=== PATIENT | male | born 1970 | race Two or more races ===

== ENCOUNTER 2018-06-25 18:27 | Emergency (ER) | payer SELFPAY ==
[~2018-06-25] VITALS: Ht 162.6 cm; Wt 80.3 kg
[~2018-06-25 18:27] MED LIST: LISI-338 PO; ONDA4TAB10 SL; OXYC-411 PO; PANT40TA5 PO
[2018-06-25 19:11] VITALS: BP 145/92
[2018-06-25] MEDS ORDERED: METH4TAB2 PO (19:38)
[2018-06-25] MEDS ORDERED: HYDR-2761 PO (19:38)
--- NOTE | 2018-06-25 19:38 | PHYS DOC ---
Past Medical History Past Medical History: High Cholesterol, Hypertension Additional Past Medical Histor: chronic back pain Past Surgical History: Other Additional Past Surgical Histo: "Sciatica surgery" Alcohol Use: Occasionally Drug Use: None Adult General Chief Complaint Chief Complaint: LOWER BACK PAIN OR INJURY HPI HPI Patient is a 48 year old male who presents with chronic right lower back pain with sciatica. Patient states that over the last week and started to become very painful with sharp shooting she with movement he rates his pain 9 out of 10. Patient states was just sitting it is 0 out of 10. Patient states that his right lower back with sharp shooting pain that goes to the back of his leg. Review of Systems Review of Systems Constitutional: Denies fever or chills [] Eyes: Denies change in visual acuity, redness, or eye pain [] HENT: Denies nasal congestion or sore throat [] Respiratory: Denies cough or shortness of breath [] Cardiovascular: No additional information not addressed in HPI [] GI: Denies abdominal pain, nausea, vomiting, bloody stools or diarrhea [] : Denies dysuria or hematuria [] Musculoskeletal: low back pain shooting down back of leg.or joint pain [] Integument: Denies rash or skin lesions [] Neurologic: Denies headache, focal weakness or sensory changes [] All other systems were reviewed and found to be within normal limits, except as documented in this note. Allergies Allergies Allergies Coded Allergies Type Severity Reaction Last Updated Verified baclofen Allergy Intermediate CHEST PRESSURE 04/03/16 Yes chlorzoxazone Allergy Intermediate CHEST PRESSURE 04/03/16 Yes codeine Allergy Intermediate rash 06/21/15 Yes cyclobenzaprine Allergy Intermediate Palpitations 10/09/13 Yes metaxalone Allergy Intermediate CHEST PRESSURE 04/03/16 Yes methocarbamol Allergy Intermediate CHEST PRESSURE 04/03/16 Yes orphenadrine Allergy Intermediate CHEST PRESSURE 04/03/16 Yes tizanidine Allergy Intermediate CHEST PRESSURE 04/03/16 Yes ibuprofen Adverse Reaction Intermediate gi pain 06/21/15 Yes lactose Adverse Reaction Unknown Nausea 04/03/16 Yes Physical Exam Physical Exam Constitutional: Well developed, well nourished, no acute distress, non-toxic appearance. [] HENT: Normocephalic, atraumatic, bilateral external ears normal, oropharynx moist, no oral exudates, nose normal. [] Eyes: PERRLA, EOMI, conjunctiva normal, no discharge. [] Neck: Normal range of motion, no tenderness, supple, no stridor. [] Cardiovascular:Heart rate regular rhythm, no murmur [] Lungs & Thorax: Bilateral breath sounds clear to auscultation [] Abdomen: Bowel sounds normal, soft, no tenderness, no masses, no pulsatile masses. [] Skin: Warm, dry, no erythema, no rash. [] Back: No tenderness, no CVA tenderness. [] Extremities: No tenderness, no cyanosis, no clubbing, ROM intact, no edema. [] Neurologic: Alert and oriented X 3, normal motor function, normal sensory function, no focal deficits noted. [] Psychologic: Affect normal, judgement normal, mood normal. Normal Physical Exam[] Current Patient Data Vital Signs Vital Signs Date Time Temp Pulse Resp B/P (MAP) Pulse Ox O2 Delivery O2 Flow Rate FiO2 06/25/18 19:11 98.0 87 16 145/92 (109) 97 Room Air 98.0 EKG EKG [] Radiology/Procedures Radiology/Procedures [] Course & Med Decision Making Course & Med Decision Making Patient is a 48 year old male who presents with chronic right lower back pain with sciatica. Patient states that over the last week and started to become very painful with sharp shooting she with movement he rates his pain 9 out of 10. Patient states was just sitting it is 0 out of 10. Patient states that his right lower back with sharp shooting pain that goes to the back of his leg. Alert and oriented. Walks with a steady gait. No tenderness to palpation of lower lumbar spine bilaterally back of the leg. There is no extremity swelling. Patient did drive himself here today. Pedal pulses present. Patient states he did go to 0 point this past they gave him hydrocodone muscle relaxer and he states he since out of this medication today did help some. Patient states he had surgery in 2005 for his sciatica. Patient states he is trying to get in with a clinic is waiting for his insurance to kick in. Patient states that most clinically they cannot get him in until July. Patient states he will make an appointment but he needs some medicine to help relieve this pain. I will give patient hydrocodone and a Medrol Dosepak. Patient is to follow-up with her primary care provider as soon as possible. Dragon Disclaimer Dragon Disclaimer This electronic medical record was generated, in whole or in part, using a voice recognition dictation system. Departure Departure Impression: Primary Impression: Sciatic pain Disposition: HOME, SELF-CARE Condition: STABLE Referrals: NO PCP (PCP) Patient Instructions: Sciatica Additional Instructions: Follow-up with her primary care provider as soon as possible. Take medication as prescribed. Also try using a heating pad. Scripts Hydrocodone Bit/Acetaminophen (HYDROCODONE-APAP 5-325 ) 1 Tab Tablet 1 TAB PO PRN Q6HRS PRN for PAIN, #10 TAB 0 Refills Prov: ANSHU MURRIETA APRN 06/25/18 Methylprednisolone (MEDROL) 4 Mg Tab.ds.pk 1 PKG PO UD, #1 PKG Prov: ANSHU MURRIETA APR06/25/18 Problem Qualifiers Primary Impression: Sciatic pain Laterality: right Qualified Codes: M54.31 - Sciatica, right side ANSHU MURRIETA APRN Jun 25, 2018 19:38
[2018-07-09] MEDS ORDERED: PRED-220 PO (18:23)
[2018-07-09] MEDS ORDERED: TRAM50TA PO (18:23)
== END 2018-06-25 19:44 | disposition home or self-care (01) ==
LOC: ER 18:27
DX: M54.41 Lumbago with sciatica, right side (principal); G89.29 Other chronic pain; E78.00 Pure hypercholesterolemia, unspecified; I10 Essential (primary) hypertension; Z88.8 Allergy status to other drugs, medicaments and biological substances; Z88.6 Allergy status to analgesic agent; Z88.5 Allergy status to narcotic agent; Z91.011 Allergy to milk products
CPT/HCPCS: 99283

== ENCOUNTER 2018-07-24 07:26 | Emergency (ER) | payer SELFPAY ==
[~2018-07-24] VITALS: Ht 162.6 cm; Wt 79.8 kg
[~2018-07-24 07:26] MED LIST changes: +HYDR-2761 PO; +METH4TAB2 PO; +PRED-220 PO; +TRAM50TA PO
[2018-07-24] MEDS ORDERED: KETOROLAC 60 MG/2 ML VIAL. IM ONE (07:45)
[2018-07-24] MEDS ORDERED: PRED50TA PO (07:59)
[2018-07-24] MEDS ORDERED: NAPR-683 PO (07:59)
[2018-07-24] MEDS ORDERED: HYDR-3164 PO (07:59)
--- NOTE | 2018-07-24 07:59 | PHYS DOC ---
Past Medical History Past Medical History: High Cholesterol, Hypertension Additional Past Medical Histor: chronic back pain Past Surgical History: Other Additional Past Surgical Histo: "Sciatica surgery" Alcohol Use: Occasionally Drug Use: None Adult General Chief Complaint Chief Complaint: BACK PAIN - NO INJURY HPI HPI Patient is a 48 year old male who presents with complaining of low back pain. Patient states he has had history of chronic back pain with history of back surgery and for the last 1 month of increasing right lower back pain with radiation to posterior high as a sharp pain that getting worse with standing up and getting better with bending his back. Patient rated his pain 8/10 and denies focal neuro deficit, fever and chills, urinary and bowel incontinence. Patient states he was seen in this emergency room 2 other location with the same pain with partial improvement of his pain. Patient states he had problem with his insurance and recently got insurance and has appointment with his doctor in 4 days. Review of Systems Review of Systems Constitutional: Denies fever or chills [] Eyes: Denies change in visual acuity, redness, or eye pain [] HENT: Denies nasal congestion or sore throat [] Respiratory: Denies cough or shortness of breath [] Cardiovascular: No additional information not addressed in HPI [] GI: Denies abdominal pain, nausea, vomiting, bloody stools or diarrhea [] : Denies dysuria or hematuria [] Musculoskeletal: Reports back pain Integument: Denies rash or skin lesions [] Neurologic: Denies headache, focal weakness or sensory changes [] Endocrine: Denies polyuria or polydipsia [] All other systems were reviewed and found to be within normal limits, except as documented in this note. Current Medications Current Medications Current Medications Medications (Trade) Dose Ordered Sig/Nathan Start Time Stop Time Status Last Admin Dose Admin Ketorolac Tromethamine (Toradol Im) 60 mg 1X ONCE 07/24/18 07:45 07/24/18 07:48 DC 07/24/18 07:53 60 MG Allergies Allergies Allergies Coded Allergies Type Severity Reaction Last Updated Verified baclofen Allergy Intermediate CHEST PRESSURE 04/03/16 Yes chlorzoxazone Allergy Intermediate CHEST PRESSURE 04/03/16 Yes cyclobenzaprine Allergy Intermediate Palpitations 10/09/13 Yes metaxalone Allergy Intermediate CHEST PRESSURE 04/03/16 Yes methocarbamol Allergy Intermediate CHEST PRESSURE 04/03/16 Yes orphenadrine Allergy Intermediate CHEST PRESSURE 04/03/16 Yes tizanidine Allergy Intermediate CHEST PRESSURE 04/03/16 Yes Physical Exam Physical Exam Constitutional: Well developed, well nourished, mild distress, non-toxic appearance. [] HENT: Normocephalic, atraumatic, bilateral external ears normal, oropharynx moist, no oral exudates, nose normal. [] Eyes: PERRLA, EOMI, conjunctiva normal, no discharge. [] Neck: Normal range of motion, no tenderness, supple, no stridor. [] Cardiovascular: Tachycardia, no murmur [] Lungs & Thorax: Bilateral breath sounds clear to auscultation [] Abdomen: Bowel sounds normal, soft, no tenderness, no masses, no pulsatile masses. [] Skin: Warm, dry, no erythema, no rash. [] Back: No midline tenderness, painful range of motion of lumbar spine, no CVA tenderness. [] Extremities: No tenderness, no cyanosis, no clubbing, ROM intact, no edema. [] Neurologic: Alert and oriented X 3, normal motor function, normal sensory function, no focal deficits noted. [] Psychologic: Affect anxious, judgement normal, mood normal. [] Current Patient Data Vital Signs Vital Signs Date Time Temp Pulse Resp B/P (MAP) Pulse Ox O2 Delivery O2 Flow Rate FiO2 07/24/18 08:30 90 18 149/78 (101) 99 Room Air 07/24/18 07:35 98.0 98.0 EKG EKG [] Radiology/Procedures Radiology/Procedures [] Course & Med Decision Making Course & Med Decision Making Evaluation of patient in ER showed 48-year-old male patient with history of chronic back pain exacerbation. Patient was anxious and had elevation of blood pressure with history of hypertension. Patient stated he took his blood pressure medication last night. Patient treated with Toradol in ER and felt better. Blood pressure improved. Patient was advised to take his blood pressure in the morning and follow with his primary care physician and his scheduled appointment with his back doctor in 4 days. Dragon Disclaimer Dragon Disclaimer This electronic medical record was generated, in whole or in part, using a voice recognition dictation system. Departure Departure Impression: Primary Impression: Sciatic pain Additional Impressions: Uncontrolled hypertension Tobacco abuse Tobacco abuse counseling Disposition: HOME, SELF-CARE (At 0800) Condition: STABLE Referrals: NO PCP (PCP) Patient Instructions: Sciatica, Smoking Cessation, Tips For Success Additional Instructions: Apply ice on the affected area Follow-up with your physician as scheduled in 4 days Return to ER if not getting better Scripts Hydrocodone/Apap 5-325 (NORCO 5-325 TABLET) 1 Each Tablet 1 TAB PO PRN Q6HRS PRN for PAIN, #14 TAB 0 Refills Prov: ASA BAILEY MD 07/24/18 Naproxen (NAPROSYN) 500 Mg Tablet 1 TAB PO BID for pain, #20 TAB Prov: ASA BAILEY MD 07/24/18 Prednisone (PREDNISONE) 50 Mg Tablet 1 TAB PO DAILY, #7 TAB Prov: ASA BAILEY MD 07/24/18 Problem Qualifiers ASA BAILEY MD Jul 24, 2018 07:59
[2018-07-24 08:30] VITALS: BP 149/78
== END 2018-07-24 08:50 | disposition home or self-care (01) ==
LOC: ER 07:26
DX: M54.41 Lumbago with sciatica, right side (principal); G89.29 Other chronic pain; R00.0 Tachycardia, unspecified; Z71.6 Tobacco abuse counseling; E78.00 Pure hypercholesterolemia, unspecified; I10 Essential (primary) hypertension; Z88.8 Allergy status to other drugs, medicaments and biological substances
CPT/HCPCS: 96372; 99283; J1885

== ENCOUNTER 2018-09-13 19:32 | Emergency (ER) | payer SELFPAY ==
[~2018-09-13] VITALS: Ht 162.6 cm; Wt 83.9 kg
[~2018-09-13 19:32] MED LIST changes: +HYDR-3164 PO; +NAPR-683 PO; +PRED50TA PO
[2018-09-13 19:48] VITALS: BP 149/88
--- NOTE | 2018-09-13 20:21 | PHYS DOC ---
Past Medical History Past Medical History: High Cholesterol, Hypertension, Other Additional Past Medical Histor: chronic back pain,SCIATICA Past Surgical History: Other Additional Past Surgical Histo: "Sciatica surgery" Additional Information: 3 TO 4 CIGARETTES A DAY Alcohol Use: Occasionally Drug Use: None Adult General Chief Complaint Chief Complaint: LOWER BACK PAIN OR INJURY HPI HPI Patient is a 48 year old male who presents to ER for Chronic back pain since 2005 that radiates down his R leg. The patient had surgery at that time with Dr. Fowler. The patient has stopped seeing his pain management doctor. States he has been given Woodward 2 months ago and Tramadol 2 months ago. The patient then later on in our conversation states that he was given Tramadol 5 days ago and has had to take 3 or 4 at a time. Patient also states that he has tried Icy Hot, and back exercise at home. Patient states pain is currently 8/10. Review of Systems Review of Systems Constitutional: Denies fever or chills [] Eyes: Denies change in visual acuity, redness, or eye pain [] HENT: Denies nasal congestion or sore throat [] Respiratory: Denies cough or shortness of breath [] Cardiovascular: No additional information not addressed in HPI [] GI: Denies abdominal pain, nausea, vomiting, bloody stools or diarrhea [] : Denies dysuria or hematuria [] Musculoskeletal: Reports back pain going down R leg or joint pain [] Integument: Denies rash or skin lesions [] Neurologic: Denies headache, focal weakness or sensory changes [] Endocrine: Denies polyuria or polydipsia [] Complete systems were reviewed and found to be within normal limits, except as documented in this note. Allergies Allergies Allergies Coded Allergies Type Severity Reaction Last Updated Verified baclofen Allergy Intermediate CHEST PRESSURE 04/03/16 Yes chlorzoxazone Allergy Intermediate CHEST PRESSURE 04/03/16 Yes cyclobenzaprine Allergy Intermediate Palpitations 10/09/13 Yes metaxalone Allergy Intermediate CHEST PRESSURE 04/03/16 Yes methocarbamol Allergy Intermediate CHEST PRESSURE 04/03/16 Yes orphenadrine Allergy Intermediate CHEST PRESSURE 04/03/16 Yes tizanidine Allergy Intermediate CHEST PRESSURE 04/03/16 Yes Physical Exam Physical Exam Constitutional: Well developed, well nourished, no acute distress, non-toxic appearance. [] HENT: Normocephalic, atraumatic, bilateral external ears normal, oropharynx moist, no oral exudates, nose normal. [] Eyes: PERRLA, EOMI, conjunctiva normal, no discharge. [] Neck: Normal range of motion, no tenderness, supple, no stridor. [] Cardiovascular:Heart rate regular rhythm, no murmur [] Lungs & Thorax: Bilateral breath sounds clear to auscultation [] Abdomen: Bowel sounds normal, soft, no tenderness, no masses, no pulsatile masses. [] Skin: Warm, dry, no erythema, no rash. [] Back: Tenderness on R lower back, no CVA tenderness. [] Extremities: No tenderness, no cyanosis, no clubbing, ROM intact, no edema. [] Neurologic: Alert and oriented X 3, normal motor function, normal sensory function, no focal deficits noted. [] Psychologic: Affect normal, judgement normal, mood normal. [] Current Patient Data Vital Signs Vital Signs Date Time Temp Pulse Resp B/P (MAP) Pulse Ox O2 Delivery O2 Flow Rate FiO2 09/13/18 19:48 98.0 98 14 149/88 (108) 96 Room Air 98.0 EKG EKG [] Radiology/Procedures Radiology/Procedures [] Course & Med Decision Making Course & Med Decision Making Pertinent Labs and Imaging studies reviewed. (See chart for details) Offered Flexeril and patient declined. Do not feel comfortable prescribing narcotics with the inconsistencies in patient story. Recommend to follow up with PCP and Pain Medicine doctor. Bijal Disclaimer Bijal Disclaimer This electronic medical record was generated, in whole or in part, using a voice recognition dictation system. Departure Departure Impression: Primary Impression: Sciatic pain Disposition: 01 HOME, SELF-CARE Condition: STABLE Referrals: NO PCP (PCP) Patient Instructions: Chronic Back Pain, Chronic Pain Management Additional Instructions: Please follow up with your pain medicine doctor and your primary care doctor. C ome back to ER if have new symptoms. Problem Qualifiers Primary Impression: Sciatic pain Laterality: right Qualified Codes: M54.31 - Sciatica, right side JOHNSONJEFF LOZANO CLARENCE Sep 13, 2018 20:21
== END 2018-09-13 20:23 | disposition home or self-care (01) ==
LOC: ER 19:32
DX: M54.41 Lumbago with sciatica, right side (principal); G89.29 Other chronic pain; E78.00 Pure hypercholesterolemia, unspecified; I10 Essential (primary) hypertension; F17.210 Nicotine dependence, cigarettes, uncomplicated; Z88.8 Allergy status to other drugs, medicaments and biological substances
CPT/HCPCS: 99281

== ENCOUNTER 2019-04-10 21:30 | Emergency (ER) | payer SELFPAY ==
[~2019-04-10] VITALS: Ht 162.6 cm; Wt 83.9 kg
[~2019-04-10 21:30] MED LIST changes: -PANT40TA5 PO; +PANT40TA77 PO
[2019-04-10 21:43] VITALS: BP 153/100
--- NOTE | 2019-04-10 22:51 | PHYS DOC ---
Past Medical History Past Medical History: High Cholesterol, Hypertension, Other Additional Past Medical Histor: chronic back pain,SCIATICA Past Surgical History: Other Additional Past Surgical Histo: "Sciatica surgery" Alcohol Use: Occasionally Drug Use: None Adult General Chief Complaint Chief Complaint: BACK PAIN - NO INJURY [facility] HPI Patient is a 48 year old male who presents to the emergency department with complaints of lateral left low back pain that radiates into his left leg for the last 3 days. Patient states he has a history of right-sided sciatica that he had surgery for several years ago. Patient states that his symptoms are similar to his sciatic nerve symptoms. He denies any recent injury, fall, or trauma. Patient denies any numbness, tingling, or weakness of his lower extremities. He denies any saddle anesthesia, or loss of bowel/bladder control. The patient currently rates his pain an 8 out of 10 on the pain scale he denies any alleviating factors, pain is worse with movement. He denies any fever, cough, shortness of breath, abdominal pain, dysuria, increased urinary frequency, or hematuria. All other ROS is neg unless otherwise noted in HPI. Review of Systems Review of Systems See Above Allergies Allergies Allergies Coded Allergies Type Severity Reaction Last Updated Verified baclofen Allergy Intermediate CHEST PRESSURE 04/03/16 Yes chlorzoxazone Allergy Intermediate CHEST PRESSURE 04/03/16 Yes cyclobenzaprine Allergy Intermediate Palpitations 10/09/13 Yes metaxalone Allergy Intermediate CHEST PRESSURE 04/03/16 Yes methocarbamol Allergy Intermediate CHEST PRESSURE 04/03/16 Yes orphenadrine Allergy Intermediate CHEST PRESSURE 04/03/16 Yes tizanidine Allergy Intermediate CHEST PRESSURE 04/03/16 Yes Physical Exam Physical Exam See Above Constitutional: Well developed, well nourished, no acute distress, non-toxic appearance. [] HENT: Normocephalic, atraumatic, bilateral external ears normal, nose normal. [] Eyes: PERRLA, EOMI, conjunctiva normal, no discharge. [] Neck: Normal range of motion, no stridor. [] Cardiovascular:Heart rate regular rhythm Lungs & Thorax: Respirations even and unlabored, no retractions, no respiratory distress Skin: Warm, dry, no erythema, no rash. [] Back: No bony tenderness, no CVA tenderness; left lumbar paraspinal tenderness to palpation, increased symptoms and pain with left straight leg lift concerning for sciatica. [] Extremities: No cyanosis, ROM intact, no edema. [] Neurologic: Alert and oriented X 3, no focal deficits noted. [] Psychologic: Affect normal, judgement normal, mood normal. [] Current Patient Data Vital Signs Vital Signs Date Time Temp Pulse Resp B/P (MAP) Pulse Ox O2 Delivery O2 Flow Rate FiO2 04/10/19 21:43 98.4 93 18 153/100 (117) 97 Room Air 98.4 EKG EKG [] Radiology/Procedures Radiology/Procedures [] Course & Med Decision Making Course & Med Decision Making Pertinent Labs and Imaging studies reviewed. (See chart for details) dx: medical screening exam A medical screening exam was performed, patient was found to have no emergent medical condition. The plan of care would've included a prescription for anti- inflammatories and education about sciatic area with stretching exercises . However, the patient eloped after talking with registration. [] [] Dragon Disclaimer Dragon Disclaimer This electronic medical record was generated, in whole or in part, using a voice recognition dictation system. Departure Departure Impression: Primary Impression: Encounter for medical screening examination Disposition: HOME, SELF-CARE Condition: STABLE Referrals: NO PCP (PCP) YSABEL PATE HEMATOLOGY SPECIALIST Apr 10, 2019 22:51
== END 2019-04-10 22:05 | disposition home or self-care (01) ==
LOC: ER 21:30
DX: G89.29 Other chronic pain (principal); M54.5 Low back pain; E78.00 Pure hypercholesterolemia, unspecified; I10 Essential (primary) hypertension; Z98.890 Other specified postprocedural states; Z88.6 Allergy status to analgesic agent; Z88.1 Allergy status to other antibiotic agents; Z88.2 Allergy status to sulfonamides; Z88.8 Allergy status to other drugs, medicaments and biological substances
CPT/HCPCS: 99281

== ENCOUNTER 2019-11-12 10:53 | Inpatient (IN) | payer SELFPAY ==
[~2019-11-12] VITALS: Ht 162.6 cm; Wt 84.8 kg
[~2019-11-12 10:53] MED LIST changes: -OXYC-411 PO; +OXYC1TAB20 PO
[2019-11-12] MEDS ORDERED: ASPIRIN CHEWABLE 81 MG TABLET. PO ONE (11:30)
--- NOTE | 2019-11-12 11:55 | RAD ---
AP portable chest 11/12/2019. Reason for exam: Chest pain. Comparison is made with an exam of 04/02/2016. Depth of inspiration is shallower. There is some focal opacity in the lower right lung suggesting atelectasis. There is no consolidation or pleural fluid. Heart size is normal. IMPRESSION: Shallow inspiration. Focal right lung atelectasis. Electronically signed by: Yaya Diehl Jr., MD (11/12/2019 11:52 AM) [facility]
[2019-11-12 11:57] LABS: BASO # 0.1 x10^3/uL (0.0-0.2); BASO % 0 % (0-3); EOS % 0 % (0-3); HEMATOCRIT 41.1 % (39.0-53.0); HEMOGLOBIN 14.2 g/dL (13.0-17.5); LYMPH # 0.8 x10^3/uL (1.0-4.8); LYMPH % 4 % (24-48); MEAN CORPUSCULAR HEMOGLOBIN 33 pg (25-35); MEAN CORPUSCULAR HGB CONC 35 g/dL (31-37); MEAN CORPUSCULAR VOLUME 94 fL (79-100); MONO # 1.1 x10^3/uL (0.0-1.1); MONO % 6 % (0-9); NEUT % 90 % (31-73); PLATELET COUNT 196 x10^3/uL (140-400); RED BLOOD COUNT 4.36 x10^6/uL (4.30-5.70); RED CELL DISTRIBUTION WIDTH 13.6 % (11.5-14.5); WHITE BLOOD COUNT 19.9 x10^3/uL (4.0-11.0)
[2019-11-12 12:03] LABS: PROTHROMBIN TIME PATIENT 12.6 SEC (11.7-14.0)
[2019-11-12 12:10] LABS: CALCIUM 8.9 mg/dL (8.5-10.1); CREATININE 0.9 mg/dL (0.7-1.3); GFR 89.7; POTASSIUM 3.5 mmol/L (3.5-5.1)
[2019-11-12 12:11] LABS: ALBUMIN 3.9 g/dL (3.4-5.0); ALBUMIN/GLOBULIN RATIO 0.9 (1.0-1.7); TOTAL BILIRUBIN 0.6 mg/dL (0.2-1.0); TOTAL PROTEIN 8.1 g/dL (6.4-8.2)
[2019-11-12] MEDS ORDERED: cefTRIAXone IV Push 1 GM VIAL. IVP ONE (12:30)
[2019-11-12] MEDS ORDERED: AZITHRMYCN 500MG IVPB FOR OMNI 250 ML IV ONE (13:00)
[2019-11-12] MEDS ORDERED: IV NORMAL SALINE 1000ML BAG 1,000 ML IV ONE (13:00)
[2019-11-12 13:19] LABS: % BANDS 9 % (0-9); % LYMPHS 6 % (24-48); % MONOS 6 % (0-10); % SEGS 79 % (35-66)
[2019-11-12 13:20] LABS: PLT ESTIMATE ADEQUATE (ADEQUATE)
--- NOTE | 2019-11-12 13:23 | PHYS DOC ---
Past Medical History Past Medical History: High Cholesterol, Hypertension, Other Additional Past Medical Histor: chronic back pain,SCIATICA Past Surgical History: Other Additional Past Surgical Histo: "Sciatica surgery" Smoking Status: Current Every Day Smoker Additional Information: 0.5 PPD Alcohol Use: Occasionally Additional Information: 1-2 BEERS/ DAY Drug Use: None General Adult EDM: Chief Complaint: CHEST PAIN HPI: HPI: Patient is a 49 year old male with history of hypertension, smoker, presented to ER today for evaluation of 10-day history of feeling sick with body ache, fever, chills, flulike symptoms. Patient said he also have productive cough with green sputum for 7 days. Patient complained of body ache, joint pain back pain. Patient said he went to an urgent care about 5 days ago for evaluation and had negative COVID19 test. Patient complained of sharp chest pain with cough or deep breathing, having trouble breathing, he feels like he is getting worse. Patient was evaluated by this physician who worn full PPE included N95 MASK, FACE SHIELD, GLOVE, GOWN. Review of Systems: Review of Systems: Constitutional: Positive for fever or chills. [] Eyes: Denies change in visual acuity. [] HENT: Positive for nasal congestion or sore throat. [] Respiratory: Positive for cough and shortness of breath. [] Cardiovascular: Positive for chest pain , no edema. [] GI: Denies abdominal pain, nausea, vomiting, bloody stools or diarrhea. [] : Denies dysuria. [] Musculoskeletal: Positive for back pain or joint pain. [] Integument: Denies rash. [] Neurologic: Denies headache, focal weakness or sensory changes. [] Endocrine: Denies polyuria or polydipsia. [] Lymphatic: Denies swollen glands. [] Psychiatric: Denies depression or anxiety. [] Heart Score: HEART Score for Chest Pain: HEART Score for Chest Pain Response (Comments) Value History Slighlty/Non-Suspicious 0 ECG Normal 0 Age >45 - < 65 1 Risk Factors 1 or 2 Risk Factors 1 Troponin < Normal Limit 0 Total 2 Risk Factors: Risk Factors: DM, Current or recent (<one month) smoker, HTN, HLP, family history of CAD, obesity. Risk Scores: Score 0 - 3: 2.5% MACE over next 6 weeks - Discharge Home Score 4 - 6: 20.3% MACE over next 6 weeks - Admit for Clinical Observation Score 7 - 10: 72.7% MACE over next 6 weeks - Early Invasive Strategies Current Medications: Current Medications Medications (Trade) Dose Ordered Sig/Nathan Start Time Stop Time Status Last Admin Dose Admin Aspirin (Aspirin Chewable) 324 mg 1X ONCE 11/12/19 11:30 11/12/19 11:31 DC 11/12/19 11:26 324 MG Azithromycin 250 ml @ 250 mls/hr 1X ONCE 11/12/19 13:00 11/12/19 13:59 11/12/19 13:14 250 MLS/HR Ceftriaxone Sodium (Rocephin) 1 gm 1X ONCE 11/12/19 12:30 11/12/19 12:31 DC 11/12/19 13:10 1 GM Sodium Chloride 1,000 ml @ 1,000 mls/hr 1X ONCE 11/12/19 13:00 11/12/19 13:59 11/12/19 13:13 1,000 MLS/HR Allergies: Allergies: Allergies Coded Allergies Type Severity Reaction Last Updated Verified baclofen Allergy Intermediate CHEST PRESSURE 04/03/16 Yes chlorzoxazone Allergy Intermediate CHEST PRESSURE 04/03/16 Yes cyclobenzaprine Allergy Intermediate Palpitations 10/09/13 Yes metaxalone Allergy Intermediate CHEST PRESSURE 04/03/16 Yes methocarbamol Allergy Intermediate CHEST PRESSURE 04/03/16 Yes orphenadrine Allergy Intermediate CHEST PRESSURE 04/03/16 Yes tizanidine Allergy Intermediate CHEST PRESSURE 04/03/16 Yes Physical Exam: PE: Constitutional: Well developed, well nourished, MILD acute distress, non-toxic appearance. [] HENT: Normocephalic, atraumatic, bilateral external ears normal, oropharynx moist WITH ERYTHEMA, no oral exudates, nose normal. [] Eyes: PERRLA, EOMI, conjunctiva normal, no discharge. [] Neck: Normal range of motion, no tenderness, supple, no stridor. [] Cardiovascular:Heart rate regular rhythm, no murmur [] Lungs & Thorax: Bilateral breath sounds WITH CRACKLES AT LUNG BASES to auscultation [] Abdomen: Bowel sounds normal, soft, no tenderness, no masses, no pulsatile masses. [] Skin: Warm, dry, no erythema, no rash. [] Back: No tenderness, no CVA tenderness. [] Extremities: No tenderness, no cyanosis, no clubbing, ROM intact, no edema. [] Neurologic: Alert and oriented X 3, normal motor function, normal sensory fun ction, no focal deficits noted. [] Psychologic: Affect normal, judgement normal, mood normal. [] Current Patient Data: Labs: Laboratory Tests Test 11/12/19 11:26 11/12/19 11:36 Lactic Acid Level 3.7 mmol/L (0.4-2.0) H White Blood Count 19.9 x10^3/uL (4.0-11.0) H Red Blood Count 4.36 x10^6/uL (4.30-5.70) Hemoglobin 14.2 g/dL (13.0-17.5) Hematocrit 41.1 % (39.0-53.0) Mean Corpuscular Volume 94 fL (79-100) Mean Corpuscular Hemoglobin 33 pg (25-35) Mean Corpuscular Hemoglobin Concent 35 g/dL (31-37) Red Cell Distribution Width 13.6 % (11.5-14.5) Platelet Count 196 x10^3/uL (140-400) Neutrophils (%) (Auto) 90 % (31-73) H Lymphocytes (%) (Auto) 4 % (24-48) L Monocytes (%) (Auto) 6 % (0-9) Eosinophils (%) (Auto) 0 % (0-3) Basophils (%) (Auto) 0 % (0-3) Neutrophils # (Auto) 18.0 x10^3/uL (1.8-7.7) H Lymphocytes # (Auto) 0.8 x10^3/uL (1.0-4.8) L Monocytes # (Auto) 1.1 x10^3/uL (0.0-1.1) Eosinophils # (Auto) 0.0 x10^3/uL (0.0-0.7) Basophils # (Auto) 0.1 x10^3/uL (0.0-0.2) Platelet Estimate Pending Prothrombin Time 12.6 SEC (11.7-14.0) Prothrombin Time INR 1.0 (0.8-1.1) Activated Partial Thromboplast Time 31 SEC (24-38) Sodium Level 130 mmol/L (136-145) L Potassium Level 3.5 mmol/L (3.5-5.1) Chloride Level 90 mmol/L (98-107) L Carbon Dioxide Level 24 mmol/L (21-32) Anion Gap 16 (6-14) H Blood Urea Nitrogen 4 mg/dL (8-26) L Creatinine 0.9 mg/dL (0.7-1.3) Estimated GFR (Cockcroft-Gault) 89.7 BUN/Creatinine Ratio 4 (6-20) L Glucose Level 128 mg/dL (70-99) H Calcium Level 8.9 mg/dL (8.5-10.1) Total Bilirubin 0.6 mg/dL (0.2-1.0) Aspartate Amino Transferase (AST) 37 U/L (15-37) Alanine Aminotransferase (ALT) 58 U/L (16-63) Alkaline Phosphatase 112 U/L (46-116) Troponin I Quantitative < 0.017 ng/mL (0.000-0.055) MN-[id number]-G-Type Natriuretic Peptide 18 pg/mL (0-124) Total Protein 8.1 g/dL (6.4-8.2) Albumin 3.9 g/dL (3.4-5.0) Albumin/Globulin Ratio 0.9 (1.0-1.7) L Lipase 244 U/L (73-393) Laboratory Tests 11/12/19 11:36 Laboratory Tests 11/12/19 11:36 Vital Signs: Vital Signs Date Time Temp Pulse Resp B/P (MAP) Pulse Ox O2 Delivery O2 Flow Rate FiO2 11/12/19 10:55 99.0 105 22 179/106 (130) 94 Room Air 99.0 EKG: EKG: EKG was done at 1105, heart rate 103 bpm, sinus tachycardia, no ST segment elevation [] Radiology/Procedures: Radiology/Procedures: [][facility] [address] [place] [address] IMAGING REPORT Signed PATIENT: KASH LOZADA ACCOUNT: [id number] : 1970 LOCATION: ER AGE: 49 SEX: M EXAM STATUS: REG ER ORD. PHYSICIAN: JESUS MANUEL DAIGLE DO REASON: chest pain, soa, cough, fever PROCEDURE: CT CHEST W/CONTRAST CT CHEST W/CONTRAST INDICATION: chest pain, soa, cough, fever Comparison: Radiograph 11/12/2019. TECHNIQUE: Following the uneventful administration of intravenous contrast, 75 cc Omnipaque 300, axial CT sections were obtained through the lungs and upper abdomen. Multiplanar reconstructions and MIP images were obtained. PQRS compliance statement: One or more of the following individualized dose reduction techniques were utilized for this examination: 1. Automated exposure control 2. Adjustment of the mA and/or kV according to patient size 3. Use of iterative reconstruction technique FINDINGS: Lungs and Airways: Scattered right upper lobe groundglass opacities. Bibasilar opacities. Bronchial wall thickening. Pleura: The pleural spaces are normal. Heart and Mediastinum: The visualized thyroid is normal in size and attenuation. No axillary or supraclavicular lymphadenopathy. No mediastinal, hilar or retrocrural lymphadenopathy. The heart and pericardium are within normal limits. The great vessels of the thorax are normal. Abdomen: Hepatic steatosis. Bones and Soft Tissues: The visualized bones and chest wall soft tissues are within normal limits. IMPRESSION: Scattered right upper lobe ground glass opacities, likely an infectious/inflammatory process. Additional bibasilar dependent opacities could represent subsegmental atelectasis and/or additional infection. Electronically signed by: Gamal Wesley MD (11/12/2019 1:58 PM) [id number] DICTATED and SIGNED BY: GAMAL WESLEY MD DATE: 11/12/19 1358 Course & Med Decision Making: Course & Med Decision Making Pertinent Labs and Imaging studies reviewed. (See chart for details) Patient is a 49-year-old male smoker, history of hypertension, presented to ER for evaluation of 10-day history of cough fever chills body ache flulike symptom. Patient indicated that he had a negative Novel coronavirus test 5 days ago. Patient continue being sick, having chest pain cough fever and chill productive cough with sputum. Patient presented here with oxygen saturation 90 to 92% on room air, tachypneic, tachycardic, lactic acid elevated to 3.7. With white blood cell count in the 19,000, patient meets criteria for severe sepsis CT scan of the chest show a few groundglass infiltration. Patient was given 2 L normal saline IV bolus in ER, Rocephin and Zithromax was started. Patient will be admitted to hospital service, discussed with Dr. Murdock who agreed to admit the patient. Patient is suspected to have COVID19. COVID-19 CRITERIA: The patient was evaluated during the global COVID-19 pandemic, and that diagnosis was suspected/considered upon their initial presentation. Their evaluation, treatment and testing was consistent with curr ent guidelines for patients who present with complaints or symptoms that may be related to COVID-19. Dragon Disclaimer: Dragon Disclaimer: This electronic medical record was generated, in whole or in part, using a voice recognition dictation system. Departure Departure Impression: Primary Impression: Severe sepsis Additional Impressions: Pneumonia Suspected COVID-19 virus infection Disposition: ADMITTED INPATIENT Admitting Physician: MADIES (Dr. Bourne) Condition: IMPROVED Referrals: NO PCP (PCP) Justicifation of Admission Dx: Justifications for Admission: Justification of Admission Dx: Yes Sepsis: End-Organ Dysfunction JESUS MANUEL DAIGLE DO Nov 12, 2019 13:23
[2019-11-12] MEDS ORDERED: CONTRAST GIVEN. MC PRN (13:45)
[2019-11-12] MEDS ORDERED: IV NORMAL SALINE 1000ML BAG 1,000 ML IV SCH (13:48)
[2019-11-12] MEDS ORDERED: ONDANSETRON PF 4 MG/2 ML VIAL. IV PRN (14:00)
[2019-11-12] MEDS ORDERED: IOHEXOL 300 MG/ML 100ML VIAL. IV ONE (14:00)
--- NOTE | 2019-11-12 14:02 | RAD ---
CT CHEST W/CONTRAST INDICATION: chest pain, soa, cough, fever Comparison: Radiograph 11/12/2019. TECHNIQUE: Following the uneventful administration of intravenous contrast, 75 cc Omnipaque 300, axial CT sections were obtained through the lungs and upper abdomen. Multiplanar reconstructions and MIP images were obtained. RS compliance statement: One or more of the following individualized dose reduction techniques were utilized for this examination: 1. Automated exposure control 2. Adjustment of the mA and/or kV according to patient size 3. Use of iterative reconstruction technique FINDINGS: Lungs and Airways: Scattered right upper lobe groundglass opacities. Bibasilar opacities. Bronchial wall thickening. Pleura: The pleural spaces are normal. Heart and Mediastinum: The visualized thyroid is normal in size and attenuation. No axillary or supraclavicular lymphadenopathy. No mediastinal, hilar or retrocrural lymphadenopathy. The heart and pericardium are within normal limits. The great vessels of the thorax are normal. Abdomen: Hepatic steatosis. Bones and Soft Tissues: The visualized bones and chest wall soft tissues are within normal limits. IMPRESSION: Scattered right upper lobe ground glass opacities, likely an infectious/inflammatory process. Additional bibasilar dependent opacities could represent subsegmental atelectasis and/or additional infection. Electronically signed by: Roland Wesley MD (11/12/2019 1:58 PM) [id number]
--- NOTE | 2019-11-12 14:35 | PDOC1 ---
History and Physical Date of Admission: Date of Admission DATE: 11/12/19 TIME: 14:32 Chief Complaint: Problems: (1) Sciatic pain (2) Chronic low back pain (3) Abdominal pain (4) URI (upper respiratory infection) (5) Nausea & vomiting (6) Chest pain (7) Encounter for medical screening examination (8) Sciatic pain (9) Pneumonia (10) Severe sepsis (11) Suspected COVID-19 virus infection Chief Complain: Shortness of breath productive cough fevers History of Present Illness: HPI: This is a middle-aged male who apparently was tested for COVID 5 days ago and it was negative Now he is developed shortness of breath cough productive green He also has associated weakness and chills He also has chest pain for the past 10 days Our initial chest x-ray in the ER was read as negative however his O2 sat is 90% were concerned he could have COVID-19 Should be noted that he has a white count of 19,000 and a lactic acid of 3.7 I discussed the case with the ER physician were going to meet the patient and consult pulmonary medicine and infectious disease Patient is also going for a CAT scan of the chest to help clarify the cause of his symptoms Past Medical/Surgical History: PMH/PSH: Past Medical History: High Cholesterol, Hypertension, Other Additional Past Medical Histor: chronic back pain,SCIATICA Past Surgical History: Other Additional Past Surgical Histo: "Sciatica surgery" Smoking Status: Current Every Day Smoker Allergies: Allergies: Coded Allergies: baclofen (Verified Allergy, Intermediate, CHEST PRESSURE, 04/03/16) chlorzoxazone (Verified Allergy, Intermediate, CHEST PRESSURE, 04/03/16) cyclobenzaprine (Verified Allergy, Intermediate, Palpitations, 10/09/13) metaxalone (Verified Allergy, Intermediate, CHEST PRESSURE, 04/03/16) methocarbamol (Verified Allergy, Intermediate, CHEST PRESSURE, 04/03/16) orphenadrine (Verified Allergy, Intermediate, CHEST PRESSURE, 04/03/16) tizanidine (Verified Allergy, Intermediate, CHEST PRESSURE, 04/03/16) Family History: Family History: Hypertension Social History: Social History: He smokes no drink or drugs Current Medications: Current Medications Current Medications Aspirin (Aspirin Chewable) 324 mg 1X ONCE PO Last administered on 11/12/19at 11:26; Start 11/12/19 at 11:30; Stop 11/12/19 at 11:31; Status DC Ceftriaxone Sodium (Rocephin) 1 gm 1X ONCE IVP Last administered on 11/12/19at 13:10; Start 11/12/19 at 12:30; Stop 11/12/19 at 12:31; Status DC Azithromycin 250 ml @ 250 mls/hr 1X ONCE IV Last administered on 11/12/19at 13:14; Start 11/12/19 at 13:00; Stop 11/12/19 at 13:59; Status DC Sodium Chloride 1,000 ml @ 1,000 mls/hr 1X ONCE IV Last administered on 11/12/19at 13:13; Start 11/12/19 at 13:00; Stop 11/12/19 at 13:59; Status DC Iohexol (Omnipaque 300 Mg/ml) 75 ml 1X ONCE IV Last administered on 11/12/19at 13:50; Start 11/12/19 at 14:00; Stop 11/12/19 at 14:01; Status DC Info (CONTRAST GIVEN -- Rx MONITORING) 1 each PRN DAILY PRN MC SEE COMMENTS; Start 11/12/19 at 13:45; Stop 11/14/19 at 13:44 Ondansetron HCl (Zofran) 4 mg PRN Q8HRS PRN IV NAUSEA/VOMITING; Start 11/12/19 at 14:00; Stop 11/13/19 at 13:59 Sodium Chloride 1,000 ml @ 125 mls/hr Q8H IV ; Start 11/12/19 at 13:48; Stop 11/13/19 at 13:47 Active Scripts Active [place] 5-325 Tablet (Acetaminophen/Hydrocodone Bitart) 1 Each Tablet 1 Tab PO PRN Q6HRS PRN Naprosyn (Naproxen) 500 Mg Tablet 1 Tab PO BID Prednisone 50 Mg Tablet 1 Tab PO DAILY Tramadol Hcl 50 Mg Tablet 50 Mg PO Q6HRS PRN Prednisone (Prednisone) 10 Mg Tablet 40 Mg PO DAILY 7 Days Hydrocodone-Apap 5-325 (Hydrocodone Bit/Acetaminophen) 1 Tab Tablet 1 Tab PO PRN Q6HRS PRN Medrol (Methylprednisolone) 4 Mg Tab.ds.pk 1 Pkg PO UD Lisinopril 5 Mg Tablet 5 Mg PO DAILY Zofran Odt (Ondansetron) 4 Mg Tab.rapdis 1 Tab SL Q8HRS Reported Oxycodone-Acetaminophen 10-325 (Oxycodone Hcl/Acetaminophen) 1 Each Tablet 1 Each PO PRN ROS: Review of Systems Review of System REVIEW OF SYSTEMS: GENERAL: Denies weakness SKIN: No bruising, hair changes or rashes. EYES: No blurred, double or loss of vision. NOSE AND THROAT: No history of nosebleeds, hoarseness or sore throat. HEART: Complains of chest discomfort LUNGS: Complains of shortness of breath cough and productive sputum GASTROINTESTINAL: Denies changes in appetite, nausea, vomiting, diarrhea or constipation. GENITOURINARY: No history of frequency, urgency, hesitancy or nocturia. NEUROLOGIC: Denies history of numbness, tingling, or tremor. PSYCHIATRIC: No history of panic, anxiety or depression. ENDOCRINE: No history of heat or cold intolerance, polyuria or polydipsia. EXTREMITIES: Denies joint pain, pain on walking or stiffness. Physical Exam: Vital Signs: Vital Signs Date Time Temp Pulse Resp B/P (MAP) Pulse Ox O2 Delivery O2 Flow Rate FiO2 11/12/19 13:59 101 18 151/89 (109) 94 Room Air 11/12/19 10:55 99.0 99.0 Physcial Exam: GEN: No apparent distress. Alert and oriented HEENT: Normal cephalic, atraumatic, external auditory canals are patent EYES: Extraocular muscles are intact, pupil are equally round and reactive to light and accommodation MUSCULOSKELETAL: Well developed , well nourished, good range of motion ENDOCRINE: No thyromegaly was palpated LYMPHATICS: No cervical chain or axillary nodes were noted HEMATOPOIETIC: No bruising NECK: Supple, no JVD, no thyromegaly was noted LUNGS: Slight wheezing he has a productive cough as well HEART: RRR, S!, S2 present. Peripheral pulses intact, no obvious murmurs noted ABDOMEN: Soft, nontender. Positive bowel sounds, no organomegaly, normal bowel sounds EXTREMITIES: Without clubbing, cyanosis, or edema. Pedal pulses intact. Negative Homans sign NEUROLOGIC: Normal speech and tone. A&O x 3, moves all extremities, no obvious focal deficits PSYCHIATRIC: Normal affect, normal mood. Stable SKIN: No ulcerations or rashes, good skin turgor, no jaundice VASCULAR: Good capillary refill, neurovascular bundle appears to be intact Labs: Labs: Laboratory Tests Test 11/12/19 11:26 11/12/19 11:36 Lactic Acid Level 3.7 mmol/L (0.4-2.0) White Blood Count 19.9 x10^3/uL (4.0-11.0) Red Blood Count 4.36 x10^6/uL (4.30-5.70) Hemoglobin 14.2 g/dL (13.0-17.5) Hematocrit 41.1 % (39.0-53.0) Mean Corpuscular Volume 94 fL (79-100) Mean Corpuscular Hemoglobin 33 pg (25-35) Mean Corpuscular Hemoglobin Concent 35 g/dL (31-37) Red Cell Distribution Width 13.6 % (11.5-14.5) Platelet Count 196 x10^3/uL (140-400) Neutrophils (%) (Auto) 90 % (31-73) Lymphocytes (%) (Auto) 4 % (24-48) Monocytes (%) (Auto) 6 % (0-9) Eosinophils (%) (Auto) 0 % (0-3) Basophils (%) (Auto) 0 % (0-3) Neutrophils # (Auto) 18.0 x10^3/uL (1.8-7.7) Lymphocytes # (Auto) 0.8 x10^3/uL (1.0-4.8) Monocytes # (Auto) 1.1 x10^3/uL (0.0-1.1) Eosinophils # (Auto) 0.0 x10^3/uL (0.0-0.7) Basophils # (Auto) 0.1 x10^3/uL (0.0-0.2) Segmented Neutrophils % 79 % (35-66) Band Neutrophils % 9 % (0-9) Lymphocytes % 6 % (24-48) Monocytes % 6 % (0-10) Platelet Estimate Adequate (ADEQUATE) Prothrombin Time 12.6 SEC (11.7-14.0) Prothromb Time International Ratio 1.0 (0.8-1.1) Activated Partial Thromboplast Time 31 SEC (24-38) Sodium Level 130 mmol/L (136-145) Potassium Level 3.5 mmol/L (3.5-5.1) Chloride Level 90 mmol/L (98-107) Carbon Dioxide Level 24 mmol/L (21-32) Anion Gap 16 (6-14) Blood Urea Nitrogen 4 mg/dL (8-26) Creatinine 0.9 mg/dL (0.7-1.3) Estimated GFR (Cockcroft-Gault) 89.7 BUN/Creatinine Ratio 4 (6-20) Glucose Level 128 mg/dL (70-99) Calcium Level 8.9 mg/dL (8.5-10.1) Total Bilirubin 0.6 mg/dL (0.2-1.0) Aspartate Amino Transf (AST/SGOT) 37 U/L (15-37) Alanine Aminotransferase (ALT/SGPT) 58 U/L (16-63) Alkaline Phosphatase 112 U/L (46-116) Troponin I Quantitative < 0.017 ng/mL (0.000-0.055) IZ-Tni-P-Type Natriuretic Peptide 18 pg/mL (0-124) Total Protein 8.1 g/dL (6.4-8.2) Albumin 3.9 g/dL (3.4-5.0) Albumin/Globulin Ratio 0.9 (1.0-1.7) Lipase 244 U/L (73-393) Laboratory Tests Test 11/12/19 11:26 11/12/19 11:36 Lactic Acid Level 3.7 mmol/L (0.4-2.0) White Blood Count 19.9 x10^3/uL (4.0-11.0) Red Blood Count 4.36 x10^6/uL (4.30-5.70) Hemoglobin 14.2 g/dL (13.0-17.5) Hematocrit 41.1 % (39.0-53.0) Mean Corpuscular Volume 94 fL (79-100) Mean Corpuscular Hemoglobin 33 pg (25-35) Mean Corpuscular Hemoglobin Concent 35 g/dL (31-37) Red Cell Distribution Width 13.6 % (11.5-14.5) Platelet Count 196 x10^3/uL (140-400) Neutrophils (%) (Auto) 90 % (31-73) Lymphocytes (%) (Auto) 4 % (24-48) Monocytes (%) (Auto) 6 % (0-9) Eosinophils (%) (Auto) 0 % (0-3) Basophils (%) (Auto) 0 % (0-3) Neutrophils # (Auto) 18.0 x10^3/uL (1.8-7.7) Lymphocytes # (Auto) 0.8 x10^3/uL (1.0-4.8) Monocytes # (Auto) 1.1 x10^3/uL (0.0-1.1) Eosinophils # (Auto) 0.0 x10^3/uL (0.0-0.7) Basophils # (Auto) 0.1 x10^3/uL (0.0-0.2) Segmented Neutrophils % 79 % (35-66) Band Neutrophils % 9 % (0-9) Lymphocytes % 6 % (24-48) Monocytes % 6 % (0-10) Platelet Estimate Adequate (ADEQUATE) Prothrombin Time 12.6 SEC (11.7-14.0) Prothromb Time International Ratio 1.0 (0.8-1.1) Activated Partial Thromboplast Time 31 SEC (24-38) Sodium Level 130 mmol/L (136-145) Potassium Level 3.5 mmol/L (3.5-5.1) Chloride Level 90 mmol/L (98-107) Carbon Dioxide Level 24 mmol/L (21-32) Anion Gap 16 (6-14) Blood Urea Nitrogen 4 mg/dL (8-26) Creatinine 0.9 mg/dL (0.7-1.3) Estimated GFR (Cockcroft-Gault) 89.7 BUN/Creatinine Ratio 4 (6-20) Glucose Level 128 mg/dL (70-99) Calcium Level 8.9 mg/dL (8.5-10.1) Total Bilirubin 0.6 mg/dL (0.2-1.0) Aspartate Amino Transf (AST/SGOT) 37 U/L (15-37) Alanine Aminotransferase (ALT/SGPT) 58 U/L (16-63) Alkaline Phosphatase 112 U/L (46-116) Troponin I Quantitative < 0.017 ng/mL (0.000-0.055) MZ-[id number]-R-Type Natriuretic Peptide 18 pg/mL (0-124) Total Protein 8.1 g/dL (6.4-8.2) Albumin 3.9 g/dL (3.4-5.0) Albumin/Globulin Ratio 0.9 (1.0-1.7) Lipase 244 U/L (73-393) Assessment/Plan Assessment/Plan Cough productive sputum leukocytosis lactic acidosis hypoxia chills fever abnormal chest x-ray chest discomfort Plan Admit to the COVID floor and rule out COVID-19 CT of the chest to help clarify the cause of his symptoms Consult pulmonary Consult ID IV antibiotics Albuterol Home meds DVT prophylaxis O2 per nasal cannula Trend labs PRN Tylenol Prognosis guarded Justicifation of Admission Dx: Justifications for Admission: Justification of Admission Dx: Yes Respiratory Failure: Severe Resp Distress Sepsis: End-Organ Dysfunction TEREZA CHAVARRIA III DO Nov 12, 2019 14:35
[2019-11-12] MEDS: methylPREDNISolone SOD SUCC PF 40 MG/ML VIAL. IV SCH ×2 (14:45→19:58)
[2019-11-12 16:05] VITALS: BP 161/80
--- NOTE | 2019-11-12 19:10 | NUR ---
spoke to Dr Bourne regarding orders for the pt. Dr Bourne notified that i had Addendum: 11/12/19 at 1940 by GRIFFIN TARIQ RN Dr Bourne notified that I had not given any medications or started fluids yet. Orders given.
--- NOTE | 2019-11-12 19:41 | NUR ---
Called service for cough medicine for the pt.
[2019-11-12] MEDS: IV NORMAL SALINE 1000ML BAG 1,000 ML IV SCH (19:42)
[2019-11-12] MEDS: PIPERACILLIN/TAZOBACTAM 3.375 GM in IV NORMAL SALINE 50ML 50 ML IV SCH ×2 (19:43→23:39)
[2019-11-12 19:55] VITALS: BP 190/98
[2019-11-12] MEDS: HYDROcodone/APAP 5/325MG 1 TAB TABLET PO PRN (19:58)
[2019-11-12] MEDS: guaiFENesin/CODEINE 100mg/10mg 5 ML LIQUID PO PRN (19:58)
[2019-11-12] MEDS: ACETAMINOPHEN 325 MG TABLET. PO PRN (20:00)
[2019-11-12 20:09] LABS: FIO2 ABG 28; HCO3 ABG 23 mmol/L (21-28); PCO2 ABG 34 mmHg (35-46); PO2 ABG 62 mmHg (75-108); SAT O2 ABG 92 % (92-99)
[2019-11-12 20:10] LABS: CORRECTED PCO2 ABG 38 mmHg; CORRECTED PH ABG 7.42; CORRECTED PO2 ABG 72 mmHg
[2019-11-12 23:52] VITALS: BP 158/93
[2019-11-13] MEDS: guaiFENesin/CODEINE 100mg/10mg 5 ML LIQUID PO PRN ×4 (03:36→23:45)
[2019-11-13] MEDS: ACETAMINOPHEN 325 MG TABLET. PO PRN (03:36)
[2019-11-13 03:44] VITALS: BP 149/85
[2019-11-13] MEDS: PIPERACILLIN/TAZOBACTAM 3.375 GM in IV NORMAL SALINE 50ML 50 ML IV SCH ×4 (05:43→23:26)
[2019-11-13] MEDS: IV NORMAL SALINE 1000ML BAG 1,000 ML IV SCH (06:20)
[2019-11-13 07:00] VITALS: BP 178/99
[2019-11-13] MEDS: MULTIVITAMIN with MINERAL TABLET. PO SCH (09:56)
[2019-11-13] MEDS: methylPREDNISolone SOD SUCC PF 40 MG/ML VIAL. IV SCH ×2 (09:56→20:53)
--- NOTE | 2019-11-13 09:56 | PDOC ---
[facility] [facility] PROGRESS NOTE Chief Complaint Chief Complaint (1) Sciatic pain (2) Chronic low back pain (3) Abdominal pain (4) URI (upper respiratory infection) (5) Nausea & vomiting (6) Chest pain (7) Encounter for medical screening examination (8) Sciatic pain (9) Pneumonia (10) Severe sepsis (11) Suspected COVID-19 virus infection History of Present Illness History of Present Illness 11/13/2019 Patient is seen and examined He is feeling much better and resting comfortably Discussed with RN Charts reviewed This is a middle-aged male who apparently was tested for COVID 5 days ago and it was negative Now he is developed shortness of breath cough productive green He also has associated weakness and chills He also has chest pain for the past 10 days Our initial chest x-ray in the ER was read as negative however his O2 sat is 90% were concerned he could have COVID-19 Should be noted that he has a white count of 19,000 and a lactic acid of 3.7 I discussed the case with the ER physician were going to meet the patient and consult pulmonary medicine and infectious disease Patient is also going for a CAT scan of the chest to help clarify the cause of his symptoms Vitals/I&O Vitals/I&O: Vital Signs Date Time Temp Pulse Resp B/P (MAP) Pulse Ox O2 Delivery O2 Flow Rate FiO2 11/13/19 07:00 98.1 90 18 178/99 (125) 100 Nasal Cannula 2.0 98.1 I & O 11/12/19 11/12/19 11/13/19 15:00 23:00 07:00 Intake Total 1000 ml 800 ml Output Total 300 ml 700 ml Balance 1000 ml 500 ml -700 ml Physical Exam General: Alert, Oriented X3, Cooperative, No acute distress Heart: Regular rate, No murmurs Lungs: Clear Abdomen: Normal bowel sounds, No tenderness Extremities: No clubbing, No cyanosis, Normal pulses Skin: No rashes, No significant lesion Labs Labs: Laboratory Tests Test 11/12/19 11:26 11/12/19 11:36 11/12/19 18:00 11/12/19 20:01 Lactic Acid Level 3.7 mmol/L (0.4-2.0) 2.0 mmol/L (0.4-2.0) White Blood Count 19.9 x10^3/uL (4.0-11.0) Red Blood Count 4.36 x10^6/uL (4.30-5.70) Hemoglobin 14.2 g/dL (13.0-17.5) Hematocrit 41.1 % (39.0-53.0) Mean Corpuscular Volume 94 fL (79-100) Mean Corpuscular Hemoglobin 33 pg (25-35) Mean Corpuscular Hemoglobin Concent 35 g/dL (31-37) Red Cell Distribution Width 13.6 % (11.5-14.5) Platelet Count 196 x10^3/uL (140-400) Neutrophils (%) (Auto) 90 % (31-73) Lymphocytes (%) (Auto) 4 % (24-48) Monocytes (%) (Auto) 6 % (0-9) Eosinophils (%) (Auto) 0 % (0-3) Basophils (%) (Auto) 0 % (0-3) Neutrophils # (Auto) 18.0 x10^3/uL (1.8-7.7) Lymphocytes # (Auto) 0.8 x10^3/uL (1.0-4.8) Monocytes # (Auto) 1.1 x10^3/uL (0.0-1.1) Eosinophils # (Auto) 0.0 x10^3/uL (0.0-0.7) Basophils # (Auto) 0.1 x10^3/uL (0.0-0.2) Segmented Neutrophils % 79 % (35-66) Band Neutrophils % 9 % (0-9) Lymphocytes % 6 % (24-48) Monocytes % 6 % (0-10) Platelet Estimate Adequate (ADEQUATE) Prothrombin Time 12.6 SEC (11.7-14.0) Prothromb Time International Ratio 1.0 (0.8-1.1) Activated Partial Thromboplast Time 31 SEC (24-38) Sodium Level 130 mmol/L (136-145) Potassium Level 3.5 mmol/L (3.5-5.1) Chloride Level 90 mmol/L (98-107) Carbon Dioxide Level 24 mmol/L (21-32) Anion Gap 16 (6-14) Blood Urea Nitrogen 4 mg/dL (8-26) Creatinine 0.9 mg/dL (0.7-1.3) Estimated GFR (Cockcroft-Gault) 89.7 BUN/Creatinine Ratio 4 (6-20) Glucose Level 128 mg/dL (70-99) Calcium Level 8.9 mg/dL (8.5-10.1) Total Bilirubin 0.6 mg/dL (0.2-1.0) Aspartate Amino Transf (AST/SGOT) 37 U/L (15-37) Alanine Aminotransferase (ALT/SGPT) 58 U/L (16-63) Alkaline Phosphatase 112 U/L (46-116) Troponin I Quantitative < 0.017 ng/mL (0.000-0.055) SS-Nry-K-Type Natriuretic Peptide 18 pg/mL (0-124) Total Protein 8.1 g/dL (6.4-8.2) Albumin 3.9 g/dL (3.4-5.0) Albumin/Globulin Ratio 0.9 (1.0-1.7) Lipase 244 U/L (73-393) O2 Saturation 92 % (92-99) Arterial Blood pH 7.45 (7.35-7.45) Arterial Blood pH (Temp corrected) 7.42 Arterial Blood pCO2 at Patient Temp 34 mmHg (35-46) Arterial Blood pCO2 (Temp correct) 38 mmHg Arterial Blood pO2 at Patient Temp 62 mmHg (75-108) Arterial Blood pO2 (Temp corrected) 72 mmHg Arterial Blood HCO3 23 mmol/L (21-28) Arterial Blood Base Excess -0 mmol/L (-3-3) FiO2 28 Review of Systems Review of Systems: Other systems are otherwise negative Assessment and Plan Assessmemt and Plan Problems Medical Problems: (1) Pneumonia Status: Acute (2) Severe sepsis Status: Acute (3) Suspected COVID-19 virus infection Status: Acute Plan Appreciate subspecialist input IV antibiotics IV steroids Home meds DVT prophylaxis O2 per nasal cannula Trend labs PRN Tylenol Comment Review of Relevant I have reviewed the following items yamile (where applicable) has been applied. Medications: Current Medications Medications (Trade) Dose Ordered Sig/Nathan Route PRN Reason Start Time Stop Time Status Last Admin Dose Admin Aspirin (Aspirin Chewable) 324 mg 1X ONCE PO 11/12/19 11:30 11/12/19 11:31 DC 11/12/19 11:26 Ceftriaxone Sodium (Rocephin) 1 gm 1X ONCE IVP 11/12/19 12:30 11/12/19 12:31 DC 11/12/19 13:10 Azithromycin 250 ml @ 250 mls/hr 1X ONCE IV 11/12/19 13:00 11/12/19 13:59 DC 11/12/19 13:14 Sodium Chloride 1,000 ml @ 1,000 mls/hr 1X ONCE IV 11/12/19 13:00 11/12/19 13:59 DC 11/12/19 13:13 Iohexol (Omnipaque 300 Mg/ml) 75 ml 1X ONCE IV 11/12/19 14:00 11/12/19 14:01 DC 11/12/19 13:50 Ondansetron HCl (Zofran) 4 mg PRN Q8HRS PRN IV NAUSEA/VOMITING 11/12/19 14:00 11/13/19 13:59 11/12/19 19:58 Methylprednisolone Sodium Succinate (SOLU-Medrol 40MG VIAL) 40 mg BID IV 11/12/19 14:45 11/12/19 19:58 Sodium Chloride 1,000 ml @ 75 mls/hr [id number] IV 11/12/19 17:00 11/12/19 19:42 Piperacillin Sod/ Tazobactam Sod 3.375 gm/Sodium Chloride 50 ml @ 100 mls/hr Q6HRS IV 11/12/19 18:00 11/13/19 05:43 Acetaminophen (Tylenol) 650 mg PRN Q6HRS PRN PO MILD PAIN / TEMP > 100.3'F 11/12/19 18:15 11/13/19 03:36 Acetaminophen/ Hydrocodone Bitart (Lortab 5/325) 1 tab PRN Q4HRS PRN PO PAIN 11/12/19 18:15 11/12/19 19:58 Guaifenesin/ Codeine Phosphate (Robitussin Ac) 5 ml PRN Q6HRS PRN PO COUGH 11/12/19 20:00 11/13/19 03:36 Justicifation of Admission Dx: Justifications for Admission: Justification of Admission Dx: Yes Respiratory Failure: Severe Resp Distress Sepsis: End-Organ Dysfunction TEREZA CHAVARRIA III DO Nov 13, 2019 09:56
[2019-11-13] MEDS: MORPHINE SULFATE 2 MG/ML VIAL. IV PRN ×4 (10:04→20:53)
--- NOTE | 2019-11-13 10:32 | CONS ---
DATE OF CONSULTATION: PULMONARY CONSULTATION ATTENDING PHYSICIAN: Dr. Bourne. REASON FOR CONSULTATION: Hypoxia and pneumonia. HISTORY OF PRESENT ILLNESS: The patient is a 49-year-old male who smoked for about 10 years. He presented to the ER with 10-day history of feeling sick with body aches, fever, chills, and flu-like symptoms. He also had a cough and sputum production for 7 days. No headaches. No nausea, vomiting or diarrhea. The patient had a COVID test, which was negative a week ago. He underwent CT chest, which was reviewed by me. The patient has evidence of ground-glass infiltrates in the right upper lobe and also some bibasilar opacities. COVID test has been pending and I have been asked to see him for further evaluation. PAST MEDICAL HISTORY: Significant for dyslipidemia, hypertension, and chronic back pain. PAST SURGICAL HISTORY: Sciatica surgery. SOCIAL HISTORY: Smoker for 10 years. ALLERGIES: All reviewed as listed in the MRAD. MEDICATIONS: Reviewed as listed in the MRAD including antibiotic, Zosyn and methylprednisone. REVIEW OF SYSTEMS: Twelve-point system obtained. Pertinent positives discussed in my history of present illness, otherwise noncontributory. PHYSICAL EXAMINATION: VITAL SIGNS: Reviewed. Blood pressure on the high side, afebrile today. T-max of 102.5. Pulse ox 93% on 2 L. HEENT: Sclerae nonicteric. NECK: Supple. LUNGS: With diminished breath sounds. CARDIOVASCULAR: With a regular rate. ABDOMEN: Soft. EXTREMITIES: With no pitting edema. LABORATORY DATA: Reviewed. White cell count 19.9, hemoglobin 14.2, and platelets are 196. ABGs were reviewed, pO2 of 62 on 28% FIO2. BUN 4, creatinine 0.9. IMPRESSION: 1. Acute hypoxic respiratory failure secondary to highly suspected COVID-[address] chest with ground-glass infiltrates in the right upper lobe and also basal infiltrates, consistent with COVID-19 pneumonia. 3. Tobacco use. 4. Leukocytosis. Possible superimposed bacterial pneumonia. RECOMMENDATIONS: 1. Continue present oxygen, keep saturation 92 and above. 2. Continue with present antibiotic, Zosyn. 3. Continue steroids with gradual taper. 4. Monitor the response to current treatment and supportive care. 5. Fever pattern is improving. 6. We will follow along with you. AKASH CANTRELL MD DR: Charles JOB#: [id number] / [id number]
[2019-11-13 11:05] VITALS: BP 168/86
--- NOTE | 2019-11-13 11:45 | PDOC ---
Infectious Disease Note Vital Sign Vital Signs Vital Signs Date Time Temp Pulse Resp B/P (MAP) Pulse Ox O2 Delivery O2 Flow Rate FiO2 11/13/19 11:05 97.7 71 20 168/86 (113) 99 Nasal Cannula 2.0 97.7 Labs Lab Laboratory Tests Test 11/12/19 18:00 11/12/19 20:01 Lactic Acid Level 2.0 mmol/L (0.4-2.0) O2 Saturation 92 % (92-99) Arterial Blood pH 7.45 (7.35-7.45) Arterial Blood pH (Temp corrected) 7.42 Arterial Blood pCO2 at Patient Temp 34 mmHg (35-46) Arterial Blood pCO2 (Temp correct) 38 mmHg Arterial Blood pO2 at Patient Temp 62 mmHg (75-108) Arterial Blood pO2 (Temp corrected) 72 mmHg Arterial Blood HCO3 23 mmol/L (21-28) Arterial Blood Base Excess -0 mmol/L (-3-3) FiO2 28 Objective Assessment Patient seen consult dictated Plan Plan of Care / LILY COLLINS MD Nov 13, 2019 11:45
--- NOTE | 2019-11-13 12:01 | CONS ---
DATE OF CONSULTATION: 11/13/2019 REQUESTING PHYSICIAN: Abigail Bourne DO REASON FOR CONSULTATION: Hypoxia, suspected COVID-19. HISTORY OF PRESENT ILLNESS: This is a 49-year-old gentleman with a history of hypertension, hyperlipidemia, who presented with not feeling well, fever, chills, body ache, flu-like symptoms. The patient had a cough that has been going on for about a week. No nausea, vomiting, diarrhea. The patient was found to be hypoxic. COVID-19 is pending. Had fever up to 102.5. White count of 19.9. Normal creatinine. Lactic acid 3.7. The patient's chest CT showed right upper lobe and ground-glass opacities. The patient has been put on steroids and azithromycin, ceftriaxone was given and Zosyn. In fact after given morphine dose, the patient says he is feeling much better. Denies any headache. Denies any visual symptoms. Denies any nausea, vomiting, diarrhea. PAST MEDICAL HISTORY: As I mentioned, hyperlipidemia, hypertension and chronic back problem. He has had sciatica surgery in the past. SOCIAL HISTORY: Positive for smoking. No alcohol use or drug use. ALLERGIES: LISTED ALLERGIC TO MULTIPLE MEDICATIONS, NONE ANTIBIOTICS. REVIEW OF SYSTEMS: As per HPI, all other systems reviewed and are negative. CURRENT MEDICATIONS: Reviewed. PHYSICAL EXAMINATION: VITAL SIGNS: Stable with T-max 102.5. HEENT: NAD. NECK: Supple, no JVP, no lymphadenopathy. LUNGS: Clear. HEART: S1, S2 regular. ABDOMEN: Benign. EXTREMITIES: No edema or cyanosis. SKIN: Unremarkable. NEUROLOGIC: The patient is alert, awake and appropriate. No focal neurologic deficit. LABORATORY DATA: White count is 19.9. BUN and creatinine is normal. COVID-[address] as I mentioned in the HPI. IMPRESSION: 1. Bilateral pulmonary infiltrate. 2. Suspected COVID-19. 3. Hypoxic respiratory failure. 4. Fever. 5. Leukocytosis. 6. Hypertension. RECOMMENDATIONS: Continue Zosyn and continue steroids, supportive care. Await COVID-19 testing. We will continue to follow. Thank you very much, Dr. Bourne, for giving me the opportunity to participate in this patient's care. LILY COLLINS MD DR: DENNYS/ashu JOB#: [id number] / [id number]
[2019-11-13 14:43] VITALS: BP 196/96
--- NOTE | 2019-11-13 15:19 | EKG ---
[facility] [address] [place] [address] Test Date: 2019-11-12 Test Time: 11:05:19 Pat Name: KASH LOZADA Department: Room: Gender: M Pe Manager: : 1970 Requested By: JESUS MANUEL DAIGLE Order Number: [id number] Reading MD: Measurements Intervals [place] Rate: 103 P: -1 DC: 126 QRS: 24 QRSD: 96 T: 35 QT: 330 QTc: 434 Interpretive Statements SINUS TACHYCARDIA NO SPECIFIC ECG ABNORMALITIES RI6.01 No previous ECG available for comparison
--- NOTE | 2019-11-13 16:25 | NUR ---
SW following. Spoke with RN and reviewed chart. Spoke with pt. Pt stated he lives with his son but that his son has not been staying at the house per risk of COVID. Pt is self-pay and on 2l 02. Pt does not have home 02. Pt stated he can afford $165 per month through [employer] if he needs 02 at discharge. Pt on IV Zosyn. SW to follow.
[2019-11-13] MEDS: HYDROcodone/APAP 5/325MG 1 TAB TABLET PO PRN ×2 (17:18→23:32)
[2019-11-13 19:40] VITALS: BP 158/95
[2019-11-13] MEDS: LACTOBACILLUS RHAMNOSUS GG 1 CAPSULE. PO SCH (20:52)
[2019-11-13 23:00] VITALS: BP 136/92
[2019-11-14] MEDS: MORPHINE SULFATE 2 MG/ML VIAL. IV PRN ×2 (01:08→05:55)
[2019-11-14] MEDS: IV NORMAL SALINE 1000ML BAG 1,000 ML IV SCH ×2 (02:13→09:00)
[2019-11-14 03:00] VITALS: BP 138/89
[2019-11-14] MEDS: PIPERACILLIN/TAZOBACTAM 3.375 GM in IV NORMAL SALINE 50ML 50 ML IV SCH (05:31)
[2019-11-14] MEDS: guaiFENesin/CODEINE 100mg/10mg 5 ML LIQUID PO PRN ×2 (06:36→12:38)
[2019-11-14 07:30] VITALS: BP 161/85
--- NOTE | 2019-11-14 09:09 | PDOC ---
PULMONARY PROGRESS NOTES DATE: 11/14/19 TIME: 09:09 Pt. resting on room air, states he is ready to go home today, feeling much better No cough, No SOB Vitals Vital Signs Date Time Temp Pulse Resp B/P (MAP) Pulse Ox O2 Delivery O2 Flow Rate FiO2 11/14/19 07:30 98.1 81 20 161/85 (110) 94 Nasal Cannula 2.0 98.1 ROS: No Nausea, No Chest Pain, No Abdominal Pain, No Increase Cough General: Alert Lungs: Clear Cardiovascular: S1, S2 Abdomen: Soft Neuro Exam: Alert, Oriented Extremities: No Edema Skin: Warm, Dry Labs Laboratory Tests Test 11/12/19 11:26 11/12/19 11:29 11/12/19 11:36 11/12/19 18:00 Lactic Acid Level 3.7 mmol/L (0.4-2.0) 2.0 mmol/L (0.4-2.0) Coronavirus (PCR) Not detected (Not Detected) White Blood Count 19.9 x10^3/uL (4.0-11.0) Red Blood Count 4.36 x10^6/uL (4.30-5.70) Hemoglobin 14.2 g/dL (13.0-17.5) Hematocrit 41.1 % (39.0-53.0) Mean Corpuscular Volume 94 fL (79-100) Mean Corpuscular Hemoglobin 33 pg (25-35) Mean Corpuscular Hemoglobin Concent 35 g/dL (31-37) Red Cell Distribution Width 13.6 % (11.5-14.5) Platelet Count 196 x10^3/uL (140-400) Neutrophils (%) (Auto) 90 % (31-73) Lymphocytes (%) (Auto) 4 % (24-48) Monocytes (%) (Auto) 6 % (0-9) Eosinophils (%) (Auto) 0 % (0-3) Basophils (%) (Auto) 0 % (0-3) Neutrophils # (Auto) 18.0 x10^3/uL (1.8-7.7) Lymphocytes # (Auto) 0.8 x10^3/uL (1.0-4.8) Monocytes # (Auto) 1.1 x10^3/uL (0.0-1.1) Eosinophils # (Auto) 0.0 x10^3/uL (0.0-0.7) Basophils # (Auto) 0.1 x10^3/uL (0.0-0.2) Segmented Neutrophils % 79 % (35-66) Band Neutrophils % 9 % (0-9) Lymphocytes % 6 % (24-48) Monocytes % 6 % (0-10) Platelet Estimate Adequate (ADEQUATE) Prothrombin Time 12.6 SEC (11.7-14.0) Prothromb Time International Ratio 1.0 (0.8-1.1) Activated Partial Thromboplast Time 31 SEC (24-38) Sodium Level 130 mmol/L (136-145) Potassium Level 3.5 mmol/L (3.5-5.1) Chloride Level 90 mmol/L (98-107) Carbon Dioxide Level 24 mmol/L (21-32) Anion Gap 16 (6-14) Blood Urea Nitrogen 4 mg/dL (8-26) Creatinine 0.9 mg/dL (0.7-1.3) Estimated GFR (Cockcroft-Gault) 89.7 BUN/Creatinine Ratio 4 (6-20) Glucose Level 128 mg/dL (70-99) Calcium Level 8.9 mg/dL (8.5-10.1) Total Bilirubin 0.6 mg/dL (0.2-1.0) Aspartate Amino Transf (AST/SGOT) 37 U/L (15-37) Alanine Aminotransferase (ALT/SGPT) 58 U/L (16-63) Alkaline Phosphatase 112 U/L (46-116) Troponin I Quantitative < 0.017 ng/mL (0.000-0.055) ZU-Dwa-U-Type Natriuretic Peptide 18 pg/mL (0-124) Total Protein 8.1 g/dL (6.4-8.2) Albumin 3.9 g/dL (3.4-5.0) Albumin/Globulin Ratio 0.9 (1.0-1.7) Lipase 244 U/L (73-393) Test 11/12/19 20:01 O2 Saturation 92 % (92-99) Arterial Blood pH 7.45 (7.35-7.45) Arterial Blood pH (Temp corrected) 7.42 Arterial Blood pCO2 at Patient Temp 34 mmHg (35-46) Arterial Blood pCO2 (Temp correct) 38 mmHg Arterial Blood pO2 at Patient Temp 62 mmHg (75-108) Arterial Blood pO2 (Temp corrected) 72 mmHg Arterial Blood HCO3 23 mmol/L (21-28) Arterial Blood Base Excess -0 mmol/L (-3-3) FiO2 28 Medications Active Scripts Medications Dose Route/Sig Max Daily Dose Days Date Category [place] 5-325 Tablet (Acetaminophen/Hydrocodone Bitart) 1 Each Tablet 1 Tab PO PRN Q6HRS PRN 07/24/18 Rx Naprosyn (Naproxen) 500 Mg Tablet 1 Tab PO BID 07/24/18 Rx Prednisone 50 Mg Tablet 1 Tab PO DAILY 07/24/18 Rx Tramadol Hcl 50 Mg Tablet 50 Mg PO Q6HRS PRN 07/09/18 Rx Prednisone (Prednisone) 10 Mg Tablet 40 Mg PO DAILY 7 07/09/18 Rx Hydrocodone-Apap 5-325 (Hydrocodone Bit/Acetaminophen) 1 Tab Tablet 1 Tab PO PRN Q6HRS PRN 06/25/18 Rx Medrol (Methylprednisolone) 4 Mg Tab.ds.pk 1 Pkg PO UD 06/25/18 Rx Lisinopril 5 Mg Tablet 5 Mg PO DAILY 04/03/16 Rx Zofran Odt (Ondansetron) 4 Mg Tab.rapdis 1 Tab SL Q8HRS 03/30/16 Rx Oxycodone-Acetaminophen 10-325 (Oxycodone Hcl/Acetaminophen) 1 Each Tablet 1 Each PO PRN 10/09/13 Reported Impression . IMPRESSION: 1. Acute hypoxic respiratory failure -- resolved 2. Abnormal CT chest with ground-glass infiltrates in the right upper lobe and also basal infiltrates 3. Tobacco use. 4. Leukocytosis. Possible superimposed bacterial pneumonia. Plan . RECOMMENDATIONS: 1. Continue present oxygen, keep saturation 92 and above. 2. Continue antibiotic per ID 3. Continue steroids with gradual taper. 4. Monitor the response to current treatment and supportive care. 5. Fever resolved, COVID -19 neg X2 6. 6 min walk to prior to discharge Ok to D/C home from out stand point Thank you AKASH CANTRELL MD Nov 14, 2019 09:09
[2019-11-14] MEDS: LACTOBACILLUS RHAMNOSUS GG 1 CAPSULE. PO SCH (09:16)
[2019-11-14] MEDS: methylPREDNISolone SOD SUCC PF 40 MG/ML VIAL. IV SCH (09:16)
[2019-11-14] MEDS: MULTIVITAMIN with MINERAL TABLET. PO SCH (09:16)
[2019-11-14] MEDS: HYDROcodone/APAP 5/325MG 1 TAB TABLET PO PRN (09:17)
--- NOTE | 2019-11-14 10:17 | PDOC ---
Infectious Disease Note Subjective Subjective pt insists , he has to get out of here today he says is feeling better ROS ROS no n/v/d/sob/fever Vital Sign Vital Signs Vital Signs Date Time Temp Pulse Resp B/P (MAP) Pulse Ox O2 Delivery O2 Flow Rate FiO2 11/14/19 09:17 94 Nasal Cannula 11/14/19 07:30 98.1 81 20 161/85 (110) 2.0 98.1 Physical Exam PHYSICAL EXAM VITAL SIGNS: Stable HEENT: NAD. NECK: Supple, no JVP, no lymphadenopathy. LUNGS: Clear. HEART: S1, S2 regular. ABDOMEN: Benign. EXTREMITIES: No edema or cyanosis. SKIN: Unremarkable. NEUROLOGIC: The patient is alert, awake and appropriate. No focal neurologic deficit. Labs Micro Microbiology 11/12/19 Blood Culture - Preliminary, Resulted NO GROWTH AFTER 1 DAY Objective Assessment IMPRESSION: 1. Bilateral pulmonary infiltrate. 2. COVID-19.neg 3. Hypoxic respiratory failure. 4. Fever. 5. Leukocytosis. 6. Hypertension. Plan Plan of Care pt has extensive pneumonia, says he need to get out of here, he will come back if worse says, understands the risk may have HIV, he says he was checked 1 mth ago at [facility], he said he will go get it checked at health dept ok to d/c on po LILY Holland MD Nov 14, 2019 10:17
[2019-11-14 11:06] VITALS: BP 165/96
[2019-11-14] MEDS ORDERED: POLYETHYLENE GLYCOL 3350 17 GM PACKET. PO ONE (11:30)
--- NOTE | 2019-11-14 11:41 | PDOC ---
PROGRESS NOTES Date of Service: DATE: 11/14/19 TIME: 11:40 Chief Complaint Chief Complaint DISCHARGE DX (1) Sciatic pain (2) Chronic low back pain (3) Abdominal pain (4) URI (upper respiratory infection) (5) Nausea & vomiting (6) Chest pain (7) Encounter for medical screening examination (8) Sciatic pain (9) Pneumonia (10) Severe sepsis (11) Suspected COVID-19 virus infection History of Present Illness History of Present Illness 11/14/2019 Patient is seen and examined He is feeling much better and resting comfortably Discussed with RN Charts reviewed Ok to d/c on po levaquin per ID Continue steroids with gradual taper. This is a middle-aged male who apparently was tested for COVID 5 days ago and it was negative Now he is developed shortness of breath cough productive green He also has associated weakness and chills He also has chest pain for the past 10 days Our initial chest x-ray in the ER was read as negative however his O2 sat is 90% were concerned he could have COVID-19 Should be noted that he has a white count of 19,000 and a lactic acid of 3.7 I discussed the case with the ER physician were going to meet the patient and consult pulmonary medicine and infectious disease Patient is also going for a CAT scan of the chest to help clarify the cause of his symptoms HE NEEDS TO F/U [facility] DEPT FOR ABNORMAL CXR , HIV TESTING Vitals Vitals Vital Signs Date Time Temp Pulse Resp B/P (MAP) Pulse Ox O2 Delivery O2 Flow Rate FiO2 11/14/19 11:06 98.3 87 20 165/96 (119) 96 Room Air 98.3 11/14/19 07:30 Physical Exam Physical Exam VITAL SIGNS: Stable HEENT: NAD. NECK: Supple, no JVP, no lymphadenopathy. LUNGS: Clear. HEART: S1, S2 regular. ABDOMEN: Benign. EXTREMITIES: No edema or cyanosis. SKIN: Unremarkable. NEUROLOGIC: The patient is alert, awake and appropriate. No focal neurologic deficit. General: Alert, Oriented X3, Cooperative, No acute distress Heart: Regular rate, Normal S1, No murmurs Lungs: Clear Abdomen: Normal bowel sounds, Soft, No tenderness Extremities: No clubbing, No cyanosis, Normal pulses Skin: No rashes, No significant lesion Labs LABS CT CHEST W/CONTRAST INDICATION: chest pain, soa, cough, fever Comparison: Radiograph 11/12/2019. TECHNIQUE: Following the uneventful administration of intravenous contrast, 75 cc Omnipaque 300, axial CT sections were obtained through the lungs and upper abdomen. Multiplanar reconstructions and MIP images were obtained. RS compliance statement: One or more of the following individualized dose reduction techniques were utilized for this examination: 1. Automated exposure control 2. Adjustment of the mA and/or kV according to patient size 3. Use of iterative reconstruction technique FINDINGS: Lungs and Airways: Scattered right upper lobe groundglass opacities. Bibasilar opacities. Bronchial wall thickening. Pleura: The pleural spaces are normal. Heart and Mediastinum: The visualized thyroid is normal in size and attenuation. No axillary or supraclavicular lymphadenopathy. No mediastinal, hilar or retrocrural lymphadenopathy. The heart and pericardium are within normal limits. The great vessels of the thorax are normal. Abdomen: Hepatic steatosis. Bones and Soft Tissues: The visualized bones and chest wall soft tissues are within normal limits. IMPRESSION: Scattered right upper lobe ground glass opacities, likely an infectious/inflammatory process. Additional bibasilar dependent opacities could represent subsegmental atelectasis and/or additional infection. Electronically signed by: Gamal Hunter MD (11/12/2019 1:58 PM) [id number] DICTATED and SIGNED BY: GAMAL HUNTER MD DATE: 11/12/19 1358 Assessment and Plan Assessmemt and Plan Problems Medical Problems: (1) Pneumonia Status: Acute (2) Severe sepsis Status: Acute (3) Suspected COVID-19 virus infection Status: Acute Comment Review of Relevant I have reviewed the following items yamile (where applicable) has been applied. Labs Laboratory Tests Test 11/12/19 18:00 11/12/19 20:01 Lactic Acid Level 2.0 mmol/L (0.4-2.0) O2 Saturation 92 % (92-99) Arterial Blood pH 7.45 (7.35-7.45) Arterial Blood pH (Temp corrected) 7.42 Arterial Blood pCO2 at Patient Temp 34 mmHg (35-46) Arterial Blood pCO2 (Temp correct) 38 mmHg Arterial Blood pO2 at Patient Temp 62 mmHg (75-108) Arterial Blood pO2 (Temp corrected) 72 mmHg Arterial Blood HCO3 23 mmol/L (21-28) Arterial Blood Base Excess -0 mmol/L (-3-3) FiO2 28 Microbiology 11/12/19 Blood Culture - Preliminary, Resulted NO GROWTH AFTER 1 DAY Medications Current Medications Aspirin (Aspirin Chewable) 324 mg 1X ONCE PO Last administered on 11/12/19at 11:26; Start 11/12/19 at 11:30; Stop 11/12/19 at 11:31; Status DC Ceftriaxone Sodium (Rocephin) 1 gm 1X ONCE IVP Last administered on 11/12/19at 13:10; Start 11/12/19 at 12:30; Stop 11/12/19 at 12:31; Status DC Azithromycin 250 ml @ 250 mls/hr 1X ONCE IV Last administered on 11/12/19at 13:14; Start 11/12/19 at 13:00; Stop 11/12/19 at 13:59; Status DC Sodium Chloride 1,000 ml @ 1,000 mls/hr 1X ONCE IV Last administered on 11/12/19at 13:13; Start 11/12/19 at 13:00; Stop 11/12/19 at 13:59; Status DC Iohexol (Omnipaque 300 Mg/ml) 75 ml 1X ONCE IV Last administered on 11/12/19at 13:50; Start 11/12/19 at 14:00; Stop 11/12/19 at 14:01; Status DC Info (CONTRAST GIVEN -- Rx MONITORING) 1 each PRN DAILY PRN MC SEE COMMENTS; Start 11/12/19 at 13:45; Stop 11/14/19 at 13:44 Ondansetron HCl (Zofran) 4 mg PRN Q8HRS PRN IV NAUSEA/VOMITING Last administ ered on 11/12/19at 19:58; Start 11/12/19 at 14:00; Stop 11/13/19 at 13:59; Status DC Sodium Chloride 1,000 ml @ 125 mls/hr Q8H IV ; Start 11/12/19 at 13:48; Stop 11/12/19 at 17:49; Status DC Multivitamins (Thera M Plus) 1 tab DAILY PO Last administered on 11/14/19at 09:16; Start 11/13/19 at 09:00 Methylprednisolone Sodium Succinate (SOLU-Medrol 40MG VIAL) 40 mg BID IV Last administered on 11/14/19 09:16; Start 11/12/19 at 14:45; Stop 11/14/19 at 10:00; Status DC Sodium Chloride 1,000 ml @ 75 mls/hr [id number] IV Last administered on 11/14/19at 02:13; Start 11/12/19 at 17:00 Piperacillin Sod/ Tazobactam Sod 3.375 gm/Sodium Chloride 50 ml @ 100 mls/hr Q6HRS IV Last administered on 11/14/19at 05:31; Start 11/12/19 at 18:00; Stop 11/14/19 at 10:18; Status DC Acetaminophen (Tylenol) 650 mg PRN Q6HRS PRN PO MILD PAIN / TEMP > 100.3'F Last administered on 11/13/19at 03:36; Start 11/12/19 at 18:15 Acetaminophen/ Hydrocodone Bitart (Lortab 5/325) 1 tab PRN Q4HRS PRN PO MOD- SEVERE PAIN Last administered on 11/14/19at 09:17; Start 11/12/19 at 18:15 Morphine Sulfate (Morphine Sulfate) 2 mg PRN Q2HR PRN IV PAIN Last administered on 11/14/19 05:55; Start 11/12/19 at 18:15 Guaifenesin/ Codeine Phosphate (Robitussin Ac) 5 ml PRN Q6HRS PRN PO COUGH Last administered on 11/14/19at 06:36; Start 11/12/19 at 20:00 Lactobacillus Rhamnosus (Culturelle) 1 cap BID PO Last administered on 11/14/19at 09:16; Start 11/13/19 at 21:00 Prednisone (Prednisone) 40 mg DAILY PO ; Start 11/15/19 at 09:00 Levofloxacin (Levaquin) 750 mg DAILY06 PO ; Start 11/15/19 at 06:00 Polyethylene Glycol (miraLAX PACKET) 17 gm 1X ONCE PO ; Start 11/14/19 at 11:30; Stop 11/14/19 at 11:31; Status DC Active Scripts Active [place] 5-325 Tablet (Acetaminophen/Hydrocodone Bitart) 1 Each Tablet 1 Tab PO PRN Q6HRS PRN Naprosyn (Naproxen) 500 Mg Tablet 1 Tab PO BID Prednisone 50 Mg Tablet 1 Tab PO DAILY Tramadol Hcl 50 Mg Tablet 50 Mg PO Q6HRS PRN Prednisone (Prednisone) 10 Mg Tablet 40 Mg PO DAILY 7 Days Hydrocodone-Apap 5-325 (Hydrocodone Bit/Acetaminophen) 1 Tab Tablet 1 Tab PO PRN Q6HRS PRN Medrol (Methylprednisolone) 4 Mg Tab.ds.pk 1 Pkg PO UD Lisinopril 5 Mg Tablet 5 Mg PO DAILY Zofran Odt (Ondansetron) 4 Mg Tab.rapdis 1 Tab SL Q8HRS Reported Oxycodone-Acetaminophen 10-325 (Oxycodone Hcl/Acetaminophen) 1 Each Tablet 1 Each PO PRN Vitals/I & O Vital Sign - Last 24 Hours 11/13/19 11/13/19 11/13/19 11/13/19 14:43 14:44 17:17 17:18 Temp 98.0 98.0 Pulse 80 Resp 17 B/P (MAP) 196/96 (129) Pulse Ox 98 98 98 98 O2 Delivery Nasal Cannula Nasal Cannula Nasal Cannula Nasal Cannula O2 Flow Rate 2.0 2.0 2.0 2.0 11/13/19 11/13/19 11/13/19 11/13/19 17:47 18:18 19:30 19:40 Temp 98.3 98.3 Pulse 73 Resp 18 B/P (MAP) 158/95 (116) Pulse Ox 98 98 96 O2 Delivery Nasal Cannula Nasal Cannula Nasal Cannula O2 Flow Rate 2.0 2.0 2.0 11/13/19 11/13/19 11/13/19 11/13/19 20:53 21:30 23:00 23:32 Temp 98.3 98.3 Pulse 76 Resp 18 B/P (MAP) 136/92 (107) Pulse Ox 98 98 92 98 O2 Delivery Nasal Cannula Nasal Cannula Nasal Cannula O2 Flow Rate 2.0 2.0 2.0 11/14/19 11/14/19 11/14/19 11/14/19 01:08 01:09 01:47 03:00 Temp 98.4 98.4 Pulse 71 Resp 18 B/P (MAP) 138/89 (105) Pulse Ox 98 98 98 94 O2 Delivery Nasal Cannula Nasal Cannula Nasal Cannula O2 Flow Rate 2.0 2.0 2.0 11/14/19 11/14/19 11/14/19/4/20 05:55 06:25 07:30 08:00 Temp 98.1 98.1 Pulse 81 Resp 19 20 B/P (MAP) 161/85 (110) Pulse Ox 94 94 O2 Delivery Nasal Cannula Nasal Cannula Room Air Room Air O2 Flow Rate 2.0 2.0 11/14/19 11/14/19 09:17 11:06 Temp 98.3 98.3 Pulse 87 Resp 20 B/P (MAP) 165/96 (119) Pulse Ox 94 96 O2 Delivery Nasal Cannula Room Air Intake and Output 11/13/19 11/13/19 11/14/19 15:00 23:00 07:00 Output Total 500 ml 650 ml Balance -500 ml -650 ml Justicifation of Admission Dx: Justifications for Admission: Justification of Admission Dx: Yes Respiratory Failure: Severe Resp Distress Sepsis: End-Organ Dysfunction RAE TRUJILLO MD Nov 14, 2019 11:41
--- NOTE | 2019-11-14 12:43 | PDOC3 ---
Discharge Summary Date of Admission: Nov 12, 2019 Date of Discharge: Nov 14, 2019 Follow-Up: 1-2 days Admitting Diagnosis comment: DISCHARGE DX (1) Sciatic pain (2) Chronic low back pain (3) Abdominal pain (4) URI (upper respiratory infection) (5) Nausea & vomiting (6) Chest pain (7) Encounter for medical screening examination (8) Sciatic pain (9) Pneumonia (10) Severe sepsis (11) Suspected COVID-19 virus infection History of Present Illness History of Present Illness 11/14/2019 Patient is seen and examined He is feeling much better and resting comfortably Discussed with RN Charts reviewed Ok to d/c on po levaquin per ID Continue steroids with gradual taper. This is a middle-aged male who apparently was tested for COVID 5 days ago and it was negative Now he is developed shortness of breath cough productive green He also has associated weakness and chills He also has chest pain for the past 10 days Our initial chest x-ray in the ER was read as negative however his O2 sat is 90% were concerned he could have COVID-19 Should be noted that he has a white count of 19,000 and a lactic acid of 3.7 I discussed the case with the ER physician were going to meet the patient and consult pulmonary medicine and infectious disease Patient is also going for a CAT scan of the chest to help clarify the cause of his symptoms HE NEEDS TO F/U [facility] DEPT FOR ABNORMAL CXR , HIV TESTING Vitals Vitals Vital Signs Date Time Temp Pulse Resp B/P (MAP) Pulse Ox O2 Delivery O2 Flow Rate FiO2 11/14/19 11:06 98.3 87 20 165/96 (119) 96 Room Air 98.3 11/14/19 07:30 Physical Exam Physical Exam VITAL SIGNS: Stable HEENT: NAD. NECK: Supple, no JVP, no lymphadenopathy. LUNGS: Clear. HEART: S1, S2 regular. ABDOMEN: Benign. EXTREMITIES: No edema or cyanosis. SKIN: Unremarkable. NEUROLOGIC: The patient is alert, awake and appropriate. No focal neurologic deficit. General: Alert, Oriented X3, Cooperative, No acute distress Heart: Regular rate, Normal S1, No murmurs Lungs: Clear Abdomen: Normal bowel sounds, Soft, No tenderness Extremities: No clubbing, No cyanosis, Normal pulses Skin: No rashes, No significant lesion Labs LABS CT CHEST W/CONTRAST INDICATION: chest pain, soa, cough, fever Comparison: Radiograph 11/12/2019. TECHNIQUE: Following the uneventful administration of intravenous contrast, 75 cc Omnipaque 300, axial CT sections were obtained through the lungs and upper abdomen. Multiplanar reconstructions and MIP images were obtained. PQRS compliance statement: One or more of the following individualized dose reduction techniques were utilized for this examination: 1. Automated exposure control 2. Adjustment of the mA and/or kV according to patient size 3. Use of iterative reconstruction technique FINDINGS: Lungs and Airways: Scattered right upper lobe groundglass opacities. Bibasilar opacities. Bronchial wall thickening. Pleura: The pleural spaces are normal. Heart and Mediastinum: The visualized thyroid is normal in size and attenuation. No axillary or supraclavicular lymphadenopathy. No mediastinal, hilar or retrocrural lymphadenopathy. The heart and pericardium are within normal limits. The great vessels of the thorax are normal. Abdomen: Hepatic steatosis. Bones and Soft Tissues: The visualized bones and chest wall soft tissues are within normal limits. IMPRESSION: Scattered right upper lobe ground glass opacities, likely an infectious/inflammatory process. Additional bibasilar dependent opacities could represent subsegmental atelectasis and/or additional infection. Electronically signed by: Roland Wesley MD (11/12/2019 1:58 PM) [id number] FINAL DIAGNOSIS Problems Medical Problems: (1) Pneumonia Status: Acute (2) Severe sepsis Status: Acute (3) Suspected COVID-19 virus infection Status: Acute Brief Hospital Course Mr. Case is a 49 old [sex] who presented with [PNEUMONIA ] CONDITION AT DISCHARGE: Improved Discharge Medications Current Medications Aspirin (Aspirin Chewable) 324 mg 1X ONCE PO Last administered on 11/12/19at 11:26; Start 11/12/19 at 11:30; Stop 11/12/19 at 11:31; Status DC Ceftriaxone Sodium (Rocephin) 1 gm 1X ONCE IVP Last administered on 11/12/19at 13:10; Start 11/12/19 at 12:30; Stop 11/12/19 at 12:31; Status DC Azithromycin 250 ml @ 250 mls/hr 1X ONCE IV Last administered on 11/12/19at 13:14; Start 11/12/19 at 13:00; Stop 11/12/19 at 13:59; Status DC Sodium Chloride 1,000 ml @ 1,000 mls/hr 1X ONCE IV Last administered on 11/12/19at 13:13; Start 11/12/19 at 13:00; Stop 11/12/19 at 13:59; Status DC Iohexol (Omnipaque 300 Mg/ml) 75 ml 1X ONCE IV Last administered on 11/12/19at 13:50; Start 11/12/19 at 14:00; Stop 11/12/19 at 14:01; Status DC Info (CONTRAST GIVEN -- Rx MONITORING) 1 each PRN DAILY PRN MC SEE COMMENTS; Start 11/12/19 at 13:45; Stop 11/14/19 at 13:44 Ondansetron HCl (Zofran) 4 mg PRN Q8HRS PRN IV NAUSEA/VOMITING Last administered on 11/12/19at 19:58; Start 11/12/19 at 14:00; Stop 11/13/19 at 13:59; Status DC Sodium Chloride 1,000 ml @ 125 mls/hr Q8H IV ; Start 11/12/19 at 13:48; Stop 11/12/19 at 17:49; Status DC Multivitamins (Thera M Plus) 1 tab DAILY PO Last administered on 11/14/19at 09:16; Start 11/13/19 at 09:00 Methylprednisolone Sodium Succinate (SOLU-Medrol 40MG VIAL) 40 mg BID IV Last administered on 11/14/19at 09:16; Start 11/12/19 at 14:45; Stop 11/14/19 at 10:00; Status DC Sodium Chloride 1,000 ml @ 75 mls/hr [id number] IV Last administered on 11/14/19at 02:13; Start 11/12/19 at 17:00 Piperacillin Sod/ Tazobactam Sod 3.375 gm/Sodium Chloride 50 ml @ 100 mls/hr Q6HRS IV Last administered on 11/14/19at 05:31; Start 11/12/19 at 18:00; Stop 11/14/19 at 10:18; Status DC Acetaminophen (Tylenol) 650 mg PRN Q6HRS PRN PO MILD PAIN / TEMP > 100.3'F Last administered on 11/13/19at 03:36; Start 11/12/19 at 18:15 Acetaminophen/ Hydrocodone Bitart (Lortab 5/325) 1 tab PRN Q4HRS PRN PO MOD- SEVERE PAIN Last administered on 11/14/19at 09:17; Start 11/12/19 at 18:15 Morphine Sulfate (Morphine Sulfate) 2 mg PRN Q2HR PRN IV PAIN Last administered on 11/14/19at 05:55; Start 11/12/19 at 18:15 Guaifenesin/ Codeine Phosphate (Robitussin Ac) 5 ml PRN Q6HRS PRN PO COUGH Last administered on 11/14/19at 12:38; Start 11/12/19 at 20:00 Lactobacillus Rhamnosus (Culturelle) 1 cap BID PO Last administered on 11/14/19at 09:16; Start 11/13/19 at 21:00 Prednisone (Prednisone) 40 mg DAILY PO ; Start 11/15/19 at 09:00 Levofloxacin (Levaquin) 750 mg DAILY06 PO ; Start 11/15/19 at 06:00 Polyethylene Glycol (miraLAX PACKET) 17 gm 1X ONCE PO Last administered on 11/14/19at 12:37; Start 11/14/19 at 11:30; Stop 11/14/19 at 11:31; Status DC Active Scripts Active [place] 5-325 Tablet (Acetaminophen/Hydrocodone Bitart) 1 Each Tablet 1 Tab PO PRN Q6HRS PRN Naprosyn (Naproxen) 500 Mg Tablet 1 Tab PO BID Prednisone 50 Mg Tablet 1 Tab PO DAILY Tramadol Hcl 50 Mg Tablet 50 Mg PO Q6HRS PRN Prednisone (Prednisone) 10 Mg Tablet 40 Mg PO DAILY 7 Days Hydrocodone-Apap 5-325 (Hydrocodone Bit/Acetaminophen) 1 Tab Tablet 1 Tab PO PRN Q6HRS PRN Medrol (Methylprednisolone) 4 Mg Tab.ds.pk 1 Pkg PO UD Lisinopril 5 Mg Tablet 5 Mg PO DAILY Zofran Odt (Ondansetron) 4 Mg Tab.rapdis 1 Tab SL Q8HRS Reported Oxycodone-Acetaminophen 10-325 (Oxycodone Hcl/Acetaminophen) 1 Each Tablet 1 Each PO PRN Vital Signs Vital Signs Date Time Temp Pulse Resp B/P (MAP) Pulse Ox O2 Delivery O2 Flow Rate FiO2 11/14/19 11:06 98.3 87 20 165/96 (119) 96 Room Air 98.3 11/14/19 10:30 2.0 Labs Laboratory Tests Test 11/12/19 18:00 11/12/19 20:01 Lactic Acid Level 2.0 mmol/L (0.4-2.0) O2 Saturation 92 % (92-99) Arterial Blood pH 7.45 (7.35-7.45) Arterial Blood pH (Temp corrected) 7.42 Arterial Blood pCO2 at Patient Temp 34 mmHg (35-46) Arterial Blood pCO2 (Temp correct) 38 mmHg Arterial Blood pO2 at Patient Temp 62 mmHg (75-108) Arterial Blood pO2 (Temp corrected) 72 mmHg Arterial Blood HCO3 23 mmol/L (21-28) Arterial Blood Base Excess -0 mmol/L (-3-3) FiO2 28 Allergies Allergies Coded Allergies Type Severity Reaction Last Updated Verified baclofen Allergy Intermediate CHEST PRESSURE 04/03/16 Yes chlorzoxazone Allergy Intermediate CHEST PRESSURE 04/03/16 Yes cyclobenzaprine Allergy Intermediate Palpitations 10/09/13 Yes metaxalone Allergy Intermediate CHEST PRESSURE 04/03/16 Yes methocarbamol Allergy Intermediate CHEST PRESSURE 04/03/16 Yes orphenadrine Allergy Intermediate CHEST PRESSURE 04/03/16 Yes tizanidine Allergy Intermediate CHEST PRESSURE 04/03/16 Yes Disposition/Orders: D/C to Home Justicifation of Admission Dx: Justifications for Admission: Justification of Admission Dx: Yes Respiratory Failure: Severe Resp Distress Sepsis: End-Organ Dysfunction RAE TRUJILLO MD Nov 14, 2019 12:43
[2019-11-14] MEDS ORDERED: MULT1TAB90 PO (12:46)
[2019-11-14] MEDS ORDERED: ACET325T9 PO (12:46)
[2019-11-14] MEDS ORDERED: LACT1CAP19 PO (12:46)
[2019-11-14] MEDS ORDERED: LEVO750T31 PO (12:46)
[2019-11-14] MEDS ORDERED: PRED20TA PO (12:46)
--- NOTE | 2019-11-14 12:47 | DISCH ---
DISCHARGE INSTRUCTIONS Condition on Discharge Condition on Discharge: Stable Activity After Discharge Activity Instructions for Disc: No restrictions, Resume previous activity Lifting Instructions after Dis: No heavy lifting, No pulling or pushing Driving Instructions after Dis: Do not drive today Diet after Discharge Diet after Discharge: Cardiac, Low Fat Checks after Discharge Checks after discharge: Check blood press - daily Contacting the DRJessica after DC Call your doctor for: If your condition worsens RAE TRUJILLO MD Nov 14, 2019 12:47
[2019-11-14 13:09] LABS: BASO # 0.1 x10^3/uL (0.0-0.2); BASO % 0 % (0-3); EOS % 0 % (0-3); HEMATOCRIT 38.8 % (39.0-53.0); HEMOGLOBIN 13.1 g/dL (13.0-17.5); LYMPH # 0.2 x10^3/uL (1.0-4.8); LYMPH % 1 % (24-48); MEAN CORPUSCULAR HEMOGLOBIN 32 pg (25-35); MEAN CORPUSCULAR HGB CONC 34 g/dL (31-37); MEAN CORPUSCULAR VOLUME 95 fL (79-100); MONO # 0.6 x10^3/uL (0.0-1.1); MONO % 2 % (0-9); NEUT # 25.5 x10^3/uL (1.8-7.7); NEUT % 97 % (31-73); PLATELET COUNT 173 x10^3/uL (140-400); RED BLOOD COUNT 4.08 x10^6/uL (4.30-5.70); RED CELL DISTRIBUTION WIDTH 13.5 % (11.5-14.5); WHITE BLOOD COUNT 26.4 x10^3/uL (4.0-11.0)
[2019-11-14 13:18] LABS: CALCIUM 8.6 mg/dL (8.5-10.1); CREATININE 0.9 mg/dL (0.7-1.3); GFR 89.7; POTASSIUM 3.4 mmol/L (3.5-5.1)
--- NOTE | 2019-11-14 14:05 | NUR ---
SW following. Spoke with RN and reviewed chart. Spoke with pt. Pt to discharge home today on room air and oral medications. No further SW needs at this time.
--- NOTE | 2019-11-14 14:20 | NUR ---
This RN escorted patient out to ER entrance to his car, education given, along with discharge directions to follow up with Rishi tinoco and getting a Primary Care Physician.
[2019-11-15] MEDS ORDERED: predniSONE 20 MG TABLET PO SCH (09:00)
== END 2019-11-14 14:12 | disposition home or self-care (01) | DRG 871 ==
LOC: ER 10:53 → 6 SOUTH 14:32 → 5 NORTH 11-13 19:30
PROVIDERS: ADMIT Internal Medicine; ATTEND Internal Medicine
DX: A41.89 Other specified sepsis (principal); J96.01 Acute respiratory failure with hypoxia; J18.9 Pneumonia, unspecified organism; E78.00 Pure hypercholesterolemia, unspecified; E78.5 Hyperlipidemia, unspecified; G89.29 Other chronic pain; I10 Essential (primary) hypertension; J06.9 Acute upper respiratory infection, unspecified; M54.40 Lumbago with sciatica, unspecified side; R65.20 Severe sepsis without septic shock; Z82.49 Family history of ischemic heart disease and other diseases of the circulatory system; Z87.891 Personal history of nicotine dependence; Z20.828 Contact with and (suspected) exposure to other viral communicable diseases
CPT/HCPCS: 36415; 36600; 71045; 71260; 80048; 80053; 82805; 83605; 83690; 83880; 84484; 85007; 85025; 85610; 85730; 87040; 93005; 94618; 94760; 96365; 96375; 99285; J0456; J0696; J2270; J2405; J2543; J2920; J7030; Q9967; G0378; U0003-CS

== ENCOUNTER 2020-02-22 08:03 | Emergency (ER) | payer SELFPAY ==
[~2020-02-22] VITALS: Ht 162.6 cm; Wt 81.8 kg
[~2020-02-22 08:03] MED LIST changes: +ACET325T9 PO; +LACT1CAP19 PO; +LEVO750T31 PO; +MULT1TAB90 PO; +PRED20TA PO
--- NOTE | 2020-02-22 08:29 | PHYS DOC ---
Past Medical History Past Medical History: High Cholesterol, Hypertension, Other Additional Past Medical Histor: chronic back pain,SCIATICA Past Surgical History: Other Additional Past Surgical Histo: "Sciatica surgery" Smoking Status: Former Smoker Alcohol Use: Occasionally Drug Use: None General Adult EDM: Chief Complaint: ANXIETY/PANIC ATTACK HPI: HPI: Patient is a 49 year old male who arrives with chief complaint of anxiety and depression with vague suicidal ideation. Patient says he has had trouble sleeping over the last 10 hours and is having some passive suicidal ideation. Patient not have a specific plan that he told me. Patient whole body pain but denies any recent illnesses. Patient has told he has had a mild case of schizophrenia in the past. Review of Systems: Review of Systems: Constitutional: Denies fever or chills. [] Eyes: Denies change in visual acuity. [] HENT: Denies nasal congestion or sore throat. [] Respiratory: Denies cough or shortness of breath. [] Cardiovascular: Denies chest pain or edema. [] GI: Denies abdominal pain, nausea, vomiting, bloody stools or diarrhea. [] : Denies dysuria. [] Musculoskeletal: Complains of diffuse pain Integument: Denies rash. [] Neurologic: Denies headache, focal weakness or sensory changes. [] Endocrine: Denies polyuria or polydipsia. [] Lymphatic: Denies swollen glands. [] Psychiatric: Complains of anxiety and and vague suicidal ideation Heart Score: Risk Factors: Risk Factors: DM, Current or recent (<one month) smoker, HTN, HLP, family history of CAD, obesity. Risk Scores: Score 0 - 3: 2.5% MACE over next 6 weeks - Discharge Home Score 4 - 6: 20.3% MACE over next 6 weeks - Admit for Clinical Observation Score 7 - 10: 72.7% MACE over next 6 weeks - Early Invasive Strategies Allergies: Allergies: Allergies Coded Allergies Type Severity Reaction Last Updated Verified baclofen Allergy Intermediate CHEST PRESSURE 04/03/16 Yes chlorzoxazone Allergy Intermediate CHEST PRESSURE 04/03/16 Yes cyclobenzaprine Allergy Intermediate Palpitations 10/09/13 Yes metaxalone Allergy Intermediate CHEST PRESSURE 04/03/16 Yes methocarbamol Allergy Intermediate CHEST PRESSURE 04/03/16 Yes orphenadrine Allergy Intermediate CHEST PRESSURE 04/03/16 Yes tizanidine Allergy Intermediate CHEST PRESSURE 04/03/16 Yes Physical Exam: PE: Constitutional: Well developed, well nourished, no acute distress, non-toxic appearance. [] HENT: Normocephalic, atraumatic, bilateral external ears normal, nose normal. [] Eyes: PERRLA, EOMI, conjunctiva normal, no discharge. [] Neck: Normal range of motion, no tenderness, supple, no stridor. [] Cardiovascular:Heart rate regular rhythm, cap refill less than 2 seconds Lungs & Thorax: Bilateral breath sounds clear Abdomen: soft, no tenderness, no masses, no pulsatile masses. [] Skin: Warm, dry, no erythema, no rash. [] Back: No tenderness, no CVA tenderness. [] Extremities: No tenderness, no cyanosis, no clubbing, ROM intact, no edema. [] Neurologic: Alert and oriented X 3, normal motor function, normal sensory function, no focal deficits noted. [] Psychologic: Depressed mood, mildly anxious, passive suicidal ideation Current Patient Data: Vital Signs: Vital Signs Date Time Temp Pulse Resp B/P (MAP) Pulse Ox O2 Delivery O2 Flow Rate FiO2 02/22/20 08:11 98.2 78 16 162/93 (116) 97 Room Air 98.2 EKG: EKG: EKG interpreted by me normal sinus rhythm with rate of 75 normal axis normal intervals normal ST segments [] Radiology/Procedures: Radiology/Procedures: [] Course & Med Decision Making: Course & Med Decision Making Pertinent Labs and Imaging studies reviewed. (See chart for details) [] Patient seen by the psychiatric assessment team and set up for [facility] intake on Wednesday. Patient does not have active suicidal plan. Patient is safe for discharge. Patient was given a prescription for Atarax. Dragon Disclaimer: [employer] Disclaimer: This electronic medical record was generated, in whole or in part, using a voice recognition dictation system. Departure Departure Impression: Primary Impression: Anxiety Additional Impression: Depression Disposition: 01 DC HOME SELF CARE/HOMELESS Condition: STABLE Referrals: NO PCP (PCP) [facility] [facility] INTA[facility] Patient Instructions: Anxiety and Panic Attacks Additional Instructions: EMERGENCY DEPARTMENT GENERAL DISCHARGE INSTRUCTIONS THANK YOU for coming to [facility] Emergency Department (ED) today and trusting us with your care. We trust that you had a positive experience in our Emergency Department. If you wish to speak to the department Management you can contact the paint department supervisor at . YOUR FOLLOW UP INSTRUCTIONS ARE FOLLOWS: Do you have a private doctor? If you do not have a private doctor, please ask for a resource list of physicians or clinics that may be able to assist you with follow up care. The Emergency Physician has interpreted your x-rays. The X-ray specialist will also review them. If there is a change in the findings you will be notified in 48 hours when at all possible. A lab test or lab culture may have been done, your results will be reviewed and you will be notified if you need a change in treatment. ADDITIONAL INSTRUCTIONS AND INFORMATION Your care today has been supervised by a physician who is specially trained in emergency care. Many problems require more than one evaluation for a complete diagnosis and treatment. We recommend that you schedule your follow up appointment as recommended to ensure complete treatment of your illness or injury. If you are unable to obtain follow up care and continue to have a problem, or if your condition worsens we recommend that you return to the ED. We are not able to safely determine your condition over the phone nor are we able to give sound medical advice over the phone. For these safety reasons, if you call for medical advice we will ask you to come to the ED for further evaluation If you have any questions regarding these discharge instructions please call the ED at . SAFETY INFORMATION In the interest of safety, wellness, and injury prevention; we encourage you to wear your seatbelt, if you smoke; quit smoking, and we encourage your family to use protective helmet for bicycling and other sporting events that present an increased risk for head injury. IF YOUR SYMPTOMS WORSEN OR NEW SYMPTOMS DEVELOP, OR YOU HAVE CONCERNS ABOUT YOUR CONDITION; OR IF YOUR CONDITION WORSENS WHILE YOU ARE WAITING FOR YOUR FOLLOW UP APPOINTMENT; EITHER CONTACT YOUR PRIMARY CARE DOCTOR, THE PHYSICIAN WHOSE NAME AND NUMBER YOU WERE GIVEN, OR RETURN TO THE ED IMMEDIATELY. Scripts Hydroxyzine Pamoate (VISTARIL) 50 Mg Capsule 1 CAP PO TID for ANXIETY, #30 CAP 2 Refills Prov: JAEL KIRBY MD 02/22/20 JAEL KIRBY MD Feb 22, 2020 08:29
[2020-02-22] MEDS ORDERED: HYDR50CA PO (10:03)
[2020-02-22 10:57] VITALS: BP 161/99
== END 2020-02-22 10:57 | disposition home or self-care (01) ==
LOC: ER 08:03
DX: F41.9 Anxiety disorder, unspecified (principal); F32.9 Major depressive disorder, single episode, unspecified; E78.00 Pure hypercholesterolemia, unspecified; I10 Essential (primary) hypertension; G89.29 Other chronic pain; R45.851 Suicidal ideations; F20.9 Schizophrenia, unspecified; Z87.891 Personal history of nicotine dependence
CPT/HCPCS: 93005; 99284